=== PATIENT | male | born 1950 | race Caucasian/White ===

== ENCOUNTER → 2019-05-28 08:53 | Outpatient (BNVA) | payer MEDICARE, OTHER, SELFPAY | PROVIDERS: Family Provider Nurse Practitioner Family; PCP Nurse Practitioner Family; Visit Provider Nurse Practitioner Family | DX: I10 Essential (primary) hypertension (principal); E11.9 Type 2 diabetes mellitus without complications; Z79.84 Long term (current) use of oral hypoglycemic drugs; E55.9 Vitamin D deficiency, unspecified; E78.5 Hyperlipidemia, unspecified | CPT/HCPCS: 80053; 80061; 82306; 83036; 85025 ==

== ENCOUNTER 2019-12-05 08:00 | Outpatient (CLI) | payer MEDICARE, OTHER, SELFPAY ==
[2019-12-05 09:06] LABS: Add Urine Microscopic? NO
[2019-12-05 09:13] LABS: Hematocrit 37.3 % (42.0-52.0); Mean Corpuscular HGB Conc 32.2 g/dL (30.0-36.0); Mean Corpuscular Volume 87.1 fL (80-94); Mean Platelet Volume 10.7 fL (7.4-10.4); Platelet Count 286 10^3/cmm (130-400); Red Blood Count 4.28 10^6/uL (4.1-5.3); White Blood Count 7.1 10^3/uL (4.0-10.0)
[2019-12-05 09:25] LABS: Alanine Aminotransferase < 5 U/L (0-41); Albumin Level 4.3 g/dL (3.5-5.2); Alkaline Phosphatase 40 IU/L (40-130); Aspartate Amino Transferase 14 U/L (0-40); Blood Urea Nitrogen 15 mg/dL (8-23); Carbon Dioxide 29 mmol/L (22-29); Chloride 106 mmol/L (98-107); Globulin 2.8 g/dL (1.3-4.6); Glucose 112 mg/dL (65-115); Osmolality Calculated 293 mOsm/kg (285-295); Sodium 143 mmol/L (136-145); Total Bilirubin 0.4 mg/dL (0.15-1.2); Total Protein 7.1 g/dL (6.6-8.7)
[2019-12-05 09:45] LABS: Bilirubin Urine Neg (NEGATIVE); Blood Urine Neg (Negative); Glucose Urine UA 4+ (Normal); Ketones Urine Negative (Negative); Leukocyte Esterase Urine Negative (Negative); Nitrate Urine Negative (Negative); Protein Urine Neg (Negative); Specific Gravity, Urine 1.025 (1.005-1.030); Urine Appearance Clear (CLEAR); Urine Color Other (Yellow); Urobilinogen Urine Norm (Negative)
[2019-12-05 10:08] LABS: Absolute Eosinophils 0.2 10^3/cmm (0.0-0.7); Absolute Neutrophil 2.9 10^3/cmm (1.4-6.5); Absolute Segmented Neutrophil 2.5 10/cmm (1.6-7.1); Band Neutrophils Absolute 0.4 10^3/cmm (0.0-1.2); Eosinophils 3 %; Lymphocytes 52 %; Monocytes Absolute 0.3 10^3/cmm (0.1-0.6); Platelet Estimate Normal (Normal); Segmented Neutrophils 35 %; Total Cells Counted 100 (0-100)
== END 2019-12-05 08:01 | disposition home or self-care (01) ==
PROVIDERS: PCP Family Medicine; Visit Provider Internal Medicine
DX: N39.0 Urinary tract infection, site not specified (principal); F03.90 Unspecified dementia, unspecified severity, without behavioral disturbance, psychotic disturbance, mood disturbance, and anxiety
CPT/HCPCS: 80053; 81003; 85007; 85027

== ENCOUNTER 2019-12-05 18:52 | Inpatient (IN) | payer MEDICARE, OTHER, SELFPAY ==
[2019-12-05 18:45] VITALS: BP 177/98; PULSE 73; RESP 18; TEMP 36.8; O2SAT 98; BMI 27.1
--- NOTE | 2019-12-05 18:50 | ECG_ITS ---
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 Measurements Intervals [place] Rate: 74 P: 66 VT: 202 QRS: 28 QRSD: 106 T: 58 QT: 395 QTc: 440 Interpretive Statements SINUS RHYTHM WITH SINUS ARRHYTHMIA No previous ECG available for comparison Electronically Signed On 12-06-2019 21:04:34 CDT by Mat Lopez M.D. [id number]
--- NOTE | 2019-12-05 18:50 | XRR_ITS ---
PROCEDURE INFORMATION: Exam: XR Chest, 1 View Exam date and time: 12/05/2019 7:15 PM Age: 69 years old Clinical indication: Other: Altered mental status; Additional info: AMS TECHNIQUE: Imaging protocol: XR of the chest Views: 1 view. COMPARISON: No relevant prior studies available. FINDINGS: Lungs: Interstitial prominence, without acute airspace disease. Pleural space: No pleural effusion. Heart/Mediastinum: No cardiomegaly. Vasculature: Ectasia of the thoracic aorta. Bones/joints: Degenerative change. Soft tissues: Right-sided skin fold. XR/XR chest 1V portable [id number] IMPRESSION: Interstitial prominence, without acute airspace disease.
--- NOTE | 2019-12-05 18:56 | CTR_ITS ---
PROCEDURE INFORMATION: Exam: CT Head Without Contrast Exam date and time: 12/05/2019 7:39 PM Age: 69 years old Clinical indication: Altered mental status/memory loss; Patient HX: PT has dementia; Additional info: AMS TECHNIQUE: Imaging protocol: Computed tomography of the head without contrast. Radiation optimization: All CT scans at this facility use at least one of these dose optimization techniques: automated exposure control; mA and/or kV adjustment per patient size (includes targeted exams where dose is matched to clinical indication); or iterative reconstruction. COMPARISON: No relevant prior studies available. RADIATION DOSE METRICS: Total DLP (mGy-cm): 734.21 FINDINGS: Brain: Mild atrophy and mild white matter chronic microvascular changes are noted. No hemorrhage or CT evidence of acute infarction is seen. Ventricles: Normal. No ventriculomegaly. Bones/joints: Unremarkable. No acute fracture. Sinuses: Visualized sinuses are unremarkable. No fluid levels. Mastoid air cells: Visualized mastoid air cells are well aerated. Soft tissues: Unremarkable. CT/CT head wo con* [id number] IMPRESSION: No acute intracranial abnormality. Radiation Dose CTDIVOL = (mGy): DLP = 734.21 (mGy-cm)
[2019-12-05 19:18] LABS: Basophils # 0.1 10^3/uL (0.0-0.1); Basophils % 1.1 %; Eosinophils # 0.1 10^3/uL (0.0-0.8); Hematocrit 40.3 % (42.0-52.0); Hemoglobin 12.8 g/dL (11.7-16.6); Lymphocytes # 3.6 10^3/uL (0.8-4.8); Lymphocytes % 39.4 %; Mean Corpuscular HGB Conc 31.8 g/dL (30.0-36.0); Mean Corpuscular Hemoglobin 27.5 pg (28.0-34.0); Mean Corpuscular Volume 86.7 fL (80-94); Mean Platelet Volume 10.2 fL (7.4-10.4); Monocytes # 0.8 10^3/uL (0.2-0.9); Monocytes % 8.6 %; Neutrophils # 4.56 10^3/uL (1.8-7.7); Neutrophils % 49.7 %; Nucleated Red Blood Cells % 0 %; Platelet Count 326 10^3/cmm (130-400); Red Blood Count 4.65 10^6/uL (4.1-5.3); White Blood Count 9.2 10^3/uL (4.0-10.0)
[2019-12-05 19:36] LABS: INR 0.92 (0.8-1.2)
--- NOTE | 2019-12-05 19:36 | ED_ITS ---
HPI - General Adult General: Chief complaint: General Medical Stated complaint: Ca 12 Time Seen by Provider: 12/05/19 18:55 History of Present Illness: HPI narrative: This patient is a 69-year-old male sent over from [facility]. He was admitted there a few days ago and has developed altered mental status in the past day or 2. He had a negative COVID prior to his admission which was within the last week. The assisted thinks he may have had a low-grade temperature. He has been acting strangely and urinating in trash cans. His calcium was noted to be elevated above 12 today and he had 4+ glucose in his urine. He was sent to the ED for further evaluation of his altered mental status. At baseline he has dementia and that is the reason he is at the assisted living. Onset (ago): day(s) (1) Review of Systems General: Reports: ROS unobtainable due to mental status [facility] ED PFSH: Medical History (Updated 12/06/19 @ 06:05 by Alecia Ramirez MD) Essential (primary) hypertension History of closed head injury Hyperglycemia Memory loss, short term Mixed hyperlipidemia Vitamin D deficiency Surgical History History of colonoscopy 2011 negative History of mandibular surgery Family History Other Diabetes Denies family history of Bleeding disorder Social History Smoking and tobacco status: former smoker Second hand smoke exposure: No Smoking risk assessment/counseling performed?: No Alcohol intake: never Desire information about alcohol rehabilitation?: No Counseling given: No Desire information about substance/drug rehabilitation?: No Counseling given: No Adopted: No Caregiver/support person: No Lives independently: Yes Household members: none Housing: House Marital status: Number of children: 2 service: Yes branch: [employer] Current occupational status: retired History of recent travel: No Current gender identity: Male Physical Exam Const: COMMON NORMALS: no acute distress, patient oriented x3 and alert EXAM LIMITATIONS: other limitations (The patient actually would not talk to me at all. The medical lab assistant who was in ) GENERAL APPEARANCE: cooperative and comfortable HENMT: HEAD & SCALP: normal to inspection FACE & SINUS: normal facial exam Eye: GENERAL EYE: appearance normal, both eyes and all related structures Neck/C-Spine: COMMON NORMALS: supple, no meningeal signs and no JVD Chest: COMMONS NORMALS: normal inspection of the chest Resp: COMMON NORMALS: normal respiratory effort, No use of accessory muscles and clear to auscultation bilaterally AUSCULTATION: clear to auscultation bilaterally Cardio: COMMON NORMALS: no JVD, regular rate, regular rhythm and No murmurs p resent (Cardio) RATE: regular rate RHYTHM: regular rhythm GI: COMMON NORMALS: Normal to inspection, nondistended, normoactive bowel sounds present, Soft to palpation and non-tender INSPECTION: Yes normal to inspection AUSCULTATION: Yes normoactive bowel sounds PALPATION: Yes Soft to palpation Back/Pelvis: COMMON NORMALS: thoracic and lumbar spine normal to inspection Extremity: COMMON NORMALS: normal to inspection Neuro: COMMON NORMALS: patient oriented x3, moves all extremities, no focal motor deficits and no sensory deficits noted SENSORIUM/ORIENTATION: Yes alert MENINGEAL SIGNS: Yes no meningeal signs Psych: COMMON NORMALS: mental status grossly normal, cooperative and normal affect Skin: COMMON NORMALS: no rashes or lesions noted and turgor normal GENERAL SKIN EXAM: no rashes or lesions noted and turgor normal Course ED course: This patient was sent by Dr. Xie and I spoke with her about the patient's history and reasons for admission. She is concerned about progressive behavioral issues and that these could be related to his hypercalcemia. CT head was neg today - CXR pending. Dr. Persaud will admit for further management. The patient was given IV fluid in the ED as the initially treatment of the elevated calcium. Vital Signs: Vital signs: Vital Signs Temperature 98.3 F 12/06/19 03:26 Pulse Rate 78 12/06/19 03:26 Respiratory Rate 16 12/06/19 03:26 Blood Pressure 165/84 12/06/19 03:26 Pulse Oximetry 97 12/06/19 03:26 MDM - General Adult Lab Data: Labs: Lab Results 12/05/19 12/05/19 12/05/19 Range/Units 19:00 19:00 19:00 WBC 9.2 (4.0-10.0) 10^3/ uL RBC 4.65 (4.1-5.3) 10^6/u L Hgb 12.8 (11.7-16.6) g/dL Hct 40.3 L (42.0-52.0) % MCV 86.7 (80-94) fL MCH 27.5 L (28.0-34.0) pg MCHC 31.8 (30.0-36.0) g/dL RDW 15.0 (12.1-15.1) % Plt Count 326 (130-400) 10^3/c mm MPV 10.2 (7.4-10.4) fL Neut % (Auto) 49.7 % Lymph % (Auto) 39.4 % [place] % (Auto) 8.6 % Eos % (Auto) 1.0 % Baso % (Auto) 1.1 % Neut # (Auto) 4.56 (1.8-7.7) 10^3/u L Lymph # (Auto) 3.6 (0.8-4.8) 10^3/u L [place] # (Auto) 0.8 (0.2-0.9) 10^3/u L Eos # (Auto) 0.1 (0.0-0.8) 10^3/u L Baso # (Auto) 0.1 (0.0-0.1) 10^3/u L Nucleated RBC % (a uto) 0 % Nucleated RBCs # 0.0 /100WBC PT 12.70 (12.1-14.9) SECO NDS INR 0.92 (0.8-1.2) Sodium 143 (136-145) mmol/L Potassium 3.1 L (3.5-5.1) mmol/L Chloride 105 (98-107) mmol/L Carbon Dioxide 28 (22-29) mmol/L Anion Gap 13.1 (5-19) BUN 18 (8-23) mg/dL Creatinine 1.5 H (0.7-1.2) mg/dL GFR Calculation Not Reportable Glucose 142 H (65-115) mg/dL Estimat Average Gl ucose Hemoglobin A1c (4.0-6.0) % Calculated Osmolal ity 295 (285-295) mOsm/k g Lactic Acid (0.5-2.2) mmol/L Calcium 12.3 H (8.5-10.5) mg/dL Magnesium 2.3 (1.7-2.3) mg/dL Total Bilirubin 0.3 (0.15-1.2) mg/dL AST 14 (0-40) U/L ALT 7 (0-41) U/L Alkaline Phosphata se 49 (40-130) IU/L Troponin T Baselin e (0-15) ng/L Troponin T [address] [place] (0-15) ng/L Delta Troponin T (0-10) ABS# Total Protein 7.4 (6.6-8.7) g/dL Albumin 4.6 (3.5-5.2) g/dL Globulin 2.8 (1.3-4.6) g/dL Lipase 38 (13-60) U/L Vitamin B12 (232-1245) pg/mL TSH 2.00 (0.27-4.20) uIU/ mL Free T4 1.04 (0.82-1.77) ng/d L PTH Intact (15-65) pg/mL Calcium (PTH Intac t) (8.5-10.5) mg/dL Random Cortisol (2.47-19.5) ug/m L Urine Color (Yellow) Urine Appearance (CLEAR) Urine pH (5-7) Ur Specific Gravit y (1.005-1.030) Urine Protein (Negative) Urine Glucose (UA) (Normal) Urine Ketones (Negative) Urine Blood (Negative) Urine Nitrate (Negative) Urine Bilirubin (NEGATIVE) Prot Sulfosalicyli c Acd (Negative) Urine Urobilinogen (Negative) mg/dL Ur Leukocyte Yumiko ase (Negative) Urine RBC (0-2) /hpf Urine WBC (0-5) /hpf Ur Squamous Epith Cells (0-5) Amorphous Sediment Urine Bacteria (NONE) 12/05/19 12/05/19 12/05/19 Range/Units 19:00 19:00 19:00 WBC (4.0-10.0) 10^3/ uL RBC (4.1-5.3) 10^6/u L Hgb (11.7-16.6) g/dL Hct (42.0-52.0) % MCV (80-94) fL MCH (28.0-34.0) pg MCHC (30.0-36.0) g/dL RDW (12.1-15.1) % Plt Count (130-400) 10^3/c mm MPV (7.4-10.4) fL Neut % (Auto) % Lymph % (Auto) % [place] % (Auto) % Eos % (Auto) % Baso % (Auto) % Neut # (Auto) (1.8-7.7) 10^3/u L Lymph # (Auto) (0.8-4.8) 10^3/u L [place] # (Auto) (0.2-0.9) 10^3/u L Eos # (Auto) (0.0-0.8) 10^3/u L Baso # (Auto) (0.0-0.1) 10^3/u L Nucleated RBC % (a uto) % Nucleated RBCs # /100WBC PT (12.1-14.9) SECO NDS INR (0.8-1.2) Sodium (136-145) mmol/L Potassium (3.5-5.1) mmol/L Chloride (98-107) mmol/L Carbon Dioxide (22-29) mmol/L Anion Gap (5-19) BUN (8-23) mg/dL Creatinine (0.7-1.2) mg/dL GFR Calculation Glucose (65-115) mg/dL Estimat Average Gl ucose 137 Hemoglobin A1c 6.4 H (4.0-6.0) % Calculated Osmolal ity (285-295) mOsm/k g Lactic Acid 1.2 (0.5-2.2) mmol/L Calcium (8.5-10.5) mg/dL Magnesium (1.7-2.3) mg/dL Total Bilirubin (0.15-1.2) mg/dL AST (0-40) U/L ALT (0-41) U/L Alkaline Phosphata se (40-130) IU/L Troponin T Baselin e 15 (0-15) ng/L Troponin T 120 [address] [place] (0-15) ng/L Delta Troponin T (0-10) ABS# Total Protein (6.6-8.7) g/dL Albumin (3.5-5.2) g/dL Globulin (1.3-4.6) g/dL Lipase (13-60) U/L Vitamin B12 (232-1245) pg/mL TSH (0.27-4.20) uIU/ mL Free T4 (0.82-1.77) ng/d L PTH Intact (15-65) pg/mL Calcium (PTH Intac t) (8.5-10.5) mg/dL Random Cortisol (2.47-19.5) ug/m L Urine Color (Yellow) Urine Appearance (CLEAR) Urine pH (5-7) Ur Specific Gravit y (1.005-1.030) Urine Protein (Negative) Urine Glucose (UA) (Normal) Urine Ketones (Negative) Urine Blood (Negative) Urine Nitrate (Negative) Urine Bilirubin (NEGATIVE) Prot Sulfosalicyli c Acd (Negative) Urine Urobilinogen (Negative) mg/dL Ur Leukocyte Yumiko ase (Negative) Urine RBC (0-2) /hpf Urine WBC (0-5) /hpf Ur Squamous Epith Cells (0-5) Amorphous Sediment Urine Bacteria (NONE) 12/05/19 12/05/19 12/05/19 Range/Units 21:03 21:10 21:10 WBC (4.0-10.0) 10^3/ uL RBC (4.1-5.3) 10^6/u L Hgb (11.7-16.6) g/dL Hct (42.0-52.0) % MCV (80-94) fL MCH (28.0-34.0) pg MCHC (30.0-36.0) g/dL RDW (12.1-15.1) % Plt Count (130-400) 10^3/c mm MPV (7.4-10.4) fL Neut % (Auto) % Lymph % (Auto) % [place] % (Auto) % Eos % (Auto) % Baso % (Auto) % Neut # (Auto) (1.8-7.7) 10^3/u L Lymph # (Auto) (0.8-4.8) 10^3/u L [place] # (Auto) (0.2-0.9) 10^3/u L Eos # (Auto) (0.0-0.8) 10^3/u L Baso # (Auto) (0.0-0.1) 10^3/u L Nucleated RBC % (a uto) % Nucleated RBCs # /100WBC PT (12.1-14.9) SECO NDS INR (0.8-1.2) Sodium (136-145) mmol/L Potassium (3.5-5.1) mmol/L Chloride (98-107) mmol/L Carbon Dioxide (22-29) mmol/L Anion Gap (5-19) BUN (8-23) mg/dL Creatinine (0.7-1.2) mg/dL GFR Calculation Glucose (65-115) mg/dL Estimat Average Gl ucose Hemoglobin A1c (4.0-6.0) % Calculated Osmolal ity (285-295) mOsm/k g Lactic Acid (0.5-2.2) mmol/L Calcium (8.5-10.5) mg/dL Magnesium (1.7-2.3) mg/dL Total Bilirubin (0.15-1.2) mg/dL AST (0-40) U/L ALT (0-41) U/L Alkaline Phosphata se (40-130) IU/L Troponin T Baselin e (0-15) ng/L Troponin T [address] [place] 17.28 H (0-15) ng/L Delta Troponin T 2.28 (0-10) ABS# Total Protein (6.6-8.7) g/dL Albumin (3.5-5.2) g/dL Globulin (1.3-4.6) g/dL Lipase (13-60) U/L Vitamin B12 (232-1245) pg/mL TSH (0.27-4.20) uIU/ mL Free T4 (0.82-1.77) ng/d L PTH Intact 57.5 (15-65) pg/mL Calcium (PTH Intac t) 12.3 H (8.5-10.5) mg/dL Random Cortisol (2.47-19.5) ug/m L Urine Color Yellow (Yellow) Urine Appearance Clear (CLEAR) Urine pH 8 H (5-7) Ur Specific Gravit y 1.020 (1.005-1.030) Urine Protein Neg (Negative) Urine Glucose (UA) Norm (Normal) Urine Ketones Negative (Negative) Urine Blood Neg (Negative) Urine Nitrate Negative (Negative) Urine Bilirubin Neg (NEGATIVE) Prot Sulfosalicyli c Acd Negative (Negative) Urine Urobilinogen Norm (Negative) mg/dL Ur Leukocyte Yumiko ase Negative (Negative) Urine RBC Rare (0-2) /hpf Urine WBC Rare (0-5) /hpf Ur Squamous Epith Cells 0-4 H (0-5) Amorphous Sediment Not Reportable Urine Bacteria 1+ H (NONE) 12/05/19 12/05/19 Range/Units 21:10 21:10 WBC (4.0-10.0) 10^3/ uL RBC (4.1-5.3) 10^6/u L Hgb (11.7-16.6) g/dL Hct (42.0-52.0) % MCV (80-94) fL MCH (28.0-34.0) pg MCHC (30.0-36.0) g/dL RDW (12.1-15.1) % Plt Count (130-400) 10^3/c mm MPV (7.4-10.4) fL Neut % (Auto) % Lymph % (Auto) % [place] % (Auto) % Eos % (Auto) % Baso % (Auto) % Neut # (Auto) (1.8-7.7) 10^3/u L Lymph # (Auto) (0.8-4.8) 10^3/u L [place] # (Auto) (0.2-0.9) 10^3/u L Eos # (Auto) (0.0-0.8) 10^3/u L Baso # (Auto) (0.0-0.1) 10^3/u L Nucleated RBC % (a uto) % Nucleated RBCs # /100WBC PT (12.1-14.9) SECO NDS INR (0.8-1.2) Sodium (136-145) mmol/L Potassium (3.5-5.1) mmol/L Chloride (98-107) mmol/L Carbon Dioxide (22-29) mmol/L Anion Gap (5-19) BUN (8-23) mg/dL Creatinine (0.7-1.2) mg/dL GFR Calculation Glucose (65-115) mg/dL Estimat Average Gl ucose Hemoglobin A1c (4.0-6.0) % Calculated Osmolal ity (285-295) mOsm/k g Lactic Acid (0.5-2.2) mmol/L Calcium (8.5-10.5) mg/dL Magnesium (1.7-2.3) mg/dL Total Bilirubin (0.15-1.2) mg/dL AST (0-40) U/L ALT (0-41) U/L Alkaline Phosphata se (40-130) IU/L Troponin T Baselin e (0-15) ng/L Troponin T [address] [place] (0-15) ng/L Delta Troponin T (0-10) ABS# Total Protein (6.6-8.7) g/dL Albumin (3.5-5.2) g/dL Globulin (1.3-4.6) g/dL Lipase (13-60) U/L Vitamin B12 341 (232-1245) pg/mL TSH (0.27-4.20) uIU/ mL Free T4 (0.82-1.77) ng/d L PTH Intact (15-65) pg/mL Calcium (PTH Intac t) (8.5-10.5) mg/dL Random Cortisol 4.05 (2.47-19.5) ug/m L Urine Color (Yellow) Urine Appearance (CLEAR) Urine pH (5-7) Ur Specific Gravit y (1.005-1.030) Urine Protein (Negative) Urine Glucose (UA) (Normal) Urine Ketones (Negative) Urine Blood (Negative) Urine Nitrate (Negative) Urine Bilirubin (NEGATIVE) Prot Sulfosalicyli c Acd (Negative) Urine Urobilinogen (Negative) mg/dL Ur Leukocyte Yumiko ase (Negative) Urine RBC (0-2) /hpf Urine WBC (0-5) /hpf Ur Squamous Epith Cells (0-5) Amorphous Sediment Urine Bacteria (NONE) Discharge Plan Discharge Patient Disposition: Placed in Observation Admit Provider: Silas Persaud Clinical Impression: Hypercalcemia Dementia Qualifiers: Dementia type: unspecified type Dementia behavioral disturbance: with behavioral disturbance Qualified Code(s): F03.91 - Unspecified dementia with behavioral disturbance Condition: Stable Discharge Date/Time: 12/05/19 22:49 Coding Level of Care Code ED Slp for [facility] Fwd Exam Comprehensive
[2019-12-05 19:41] LABS: Lactic Sepsis W/Reflex 1.2 mmol/L (0.5-2.2)
[2019-12-05 19:55] LABS: Alanine Aminotransferase 7 U/L (0-41); Albumin Level 4.6 g/dL (3.5-5.2); Alkaline Phosphatase 49 IU/L (40-130); Aspartate Amino Transferase 14 U/L (0-40); Blood Urea Nitrogen 18 mg/dL (8-23); Calcium 12.3 mg/dL (8.5-10.5); Carbon Dioxide 28 mmol/L (22-29); Chloride 105 mmol/L (98-107); Free T4 Free Thyroxine 1.04 ng/dL (0.82-1.77); Globulin 2.8 g/dL (1.3-4.6); Glucose 142 mg/dL (65-115); Lipase 38 U/L (13-60); Magnesium 2.3 mg/dL (1.7-2.3); Osmolality Calculated 295 mOsm/kg (285-295); Sodium 143 mmol/L (136-145); Total Bilirubin 0.3 mg/dL (0.15-1.2); Total Protein 7.4 g/dL (6.6-8.7)
[2019-12-05 19:59] LABS: Anion Gap 13.1 (5-19); Potassium 3.1 mmol/L (3.5-5.1)
[2019-12-05 20:08] VITALS: BP 172/91; PULSE 67; RESP 11; O2SAT 99
[2019-12-05 20:11] LABS: Troponin(5th) Baseline 15 ng/L (0-15)
[2019-12-05] MEDS: sodium chloride 0.9% 1,000 ML 999 ML IV (20:22)
--- NOTE | 2019-12-05 20:50 | ECG_ITS ---
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 Measurements Intervals [place] Rate: 73 P: 75 NV: 202 QRS: 39 QRSD: 105 T: 64 QT: 416 QTc: 461 Interpretive Statements SINUS RHYTHM Compared to ECG 12/05/2019 18:59:23 Sinus arrhythmia no longer present Electronically Signed On 12-06-2019 21:11:54 CDT by Mat Lopez M.D. [email or web address] medical [email or web address] [email or web address]/store/[id number]
[2019-12-05 21:33] VITALS: BP 191/97; PULSE 72; RESP 10; O2SAT 100
[2019-12-05 21:37] LABS: Troponin 5 2HR 17.28 ng/L (0-15); Troponin 5 2HR Delta 2.28 ABS# (0-10)
[2019-12-05] MEDS: potassium chloride premix 40 MEQ/100 ML PREMIX 25 MEQ IV (21:39)
[2019-12-05 21:40] LABS: Bacteria Urine 1+; Bilirubin Urine Neg (NEGATIVE); Blood Urine Neg (Negative); Glucose Urine UA Norm (Normal); Ketones Urine Negative (Negative); Leukocyte Esterase Urine Negative (Negative); Nitrate Urine Negative (Negative); Protein Urine Neg (Negative); RBC Urine RARE /hpf (0-2); Squamous Epithelial Cell Urine 0-4 (0-5); Sulfosalicylic Acid Urine Negative (Negative); Urine Appearance Clear (CLEAR); Urine Color Yellow (Yellow); Urobilinogen Urine Norm (Negative); WBC Urine RARE /hpf (0-5); pH Urine 8 (5-7)
--- NOTE | 2019-12-05 21:43 | P.HP_ITS ---
Providers/Chief Complaint Primary Care Provider: Karen Loredo MD Chief Complaint: Ca 12 History of Present Illness Madina Thompson is a 69 year old male who was sent in the emergency department for low-grade temperature, elevated calcium. He has had progressive dementia from my understanding. There are concerns about his behavior at his assisted living and he was found urinating either in the floor or in the trash can earlier today. I talked with a family member who reports he has had significant dementia symptoms for at least 1 year. This forgetfulness, progressed rather rapidly. In September of this year he fell and had a closed head injury causing cerebral edema. He was hospitalized at [place] and then was transferred to [place]. One seizure was associated with this and he took Keppra for a short while. Since that time he has had continued progressive memory loss and occasional odd behavior. He will have hallucinations, and occasional violent outbursts. At other times he will be very quiet and reserve d. Family reports that his father had severe dementia as well that was rather rapidly progressing. There is a concern, his calcium level which is elevated could be contributing to his mental status difficulties. Patient himself is unable to give any coherent history. Review of Systems General: Reports: ROS unobtainable due to mental status (Secondary to severe dementia) Medications/Allergies Home Medications Medication Instructions Recorded Confirmed Last Taken Type cholecalciferol (vitamin D3) 125 125 mcg PO DAILY #30 cap 11/11/19 12/05/19 12/05/19 Rx mcg (5,000 unit) capsule montelukast 10 mg tablet 10 mg PO DAILY #30 tab 11/11/19 12/05/19 12/05/19 Rx telmisartan 20 mg tablet 20 mg PO DAILY #30 tab 11/11/19 12/05/19 12/05/19 Rx donepezil 5 mg PO BEDTIME 12/05/19 12/05/19 12/04/19 History Allergies Allergy/AdvReac Type Severity Reaction Status Date / Time indomethacin [From Indocin] Allergy ALGY-Rash Verified 12/05/19 18:51 pravastatin [From Pravachol] AdvReac ADR-Muscle Verified 12/05/19 18:51 Pain PFSH Acute 2 PFSH: Medical History (Updated 12/05/19 @ 22:41 by Silas Persaud MD) Essential (primary) hypertension History of closed head injury Hyperglycemia Memory loss, short term Mixed hyperlipidemia Vitamin D deficiency Surgical History (Updated 12/05/19 @ 22:38 by Silas Persaud MD) History of colonoscopy 2011 negative History of mandibular surgery Family History Other Diabetes Denies family history of Bleeding disorder Social History Smoking and tobacco status: former smoker Second hand smoke exposure: No Smoking risk assessment/counseling performed?: No Alcohol intake: never Desire information about alcohol rehabilitation?: No Counseling given: No Desire information about substance/drug rehabilitation?: No Counseling given: No Adopted: No Caregiver/support person: No Lives independently: Yes Household members: none Housing: House Marital status: Number of children: 2 service: Yes branch: [employer] Current occupational status: retired History of recent travel: No Current gender identity: Male Vitals/I&O/Wt Last Vital Signs Temp 98.3 F 12/05/19 18:45 Pulse 72 12/05/19 21:33 Resp 10 L 12/05/19 21:33 BP 191/97 12/05/19 21:33 Pulse Ox 100 12/05/19 21:33 Weight last 48 hrs Weight 90.718 kg Physical Exam Narrative: EXAM NARRATIVE: General exam is a white male, who makes some faces and occasionally will, and will I am doing my exam. He is obviously confused. HEENT: Pupils equally round. Oropharynx clear. Neck there is supple no lymphadenopathy or thyromegaly Cardiovascular regular rate and rhythm without murmur, no S3 or S4 Lungs clear no wheezing or crackles Abdomen is soft positive bowel sounds. No obvious organomegaly was deferred Extremities no cyanosis clubbing, cap refill brisk. Right leg has trace edema Neuro no focal deficits, obviously confused. Slight jerkiness to his upper extremity maneuvers. Skin no rash Data : 12/05/19 19:00 12/05/19 19:00 Micro: Microbiology 12/05/19 19:00 Blood Culture - Preliminary Blood SPECIMEN COLLECTED 12/05/19 19:06 Blood Culture - Preliminary Blood SPECIMEN COLLECTED Other data: Calcium 12.3 Liver function tests within normal limits Troponin XV Albumin normal TSH normal Urinalysis negative CT head nothing acute Chest x-ray appears normal by my read Magnesium level normal A&P Assessment and plan (1) Hypercalcemia: This appears to have been going on since 2000 At this point I doubt it is affecting his mental status and I believe when he is hydrated he will likely only have mild hypercalcemia Thyroid testing has been checked. Vitamin D3 will be discontinued. Cortisol level, serum protein electrophoresis will be obtained Observation Status: Acute (2) Dementia: Check B12 I suspect he has Lewy body dementia with his history of hallucinations, slight tremulousness, rapid deterioration. Status: Acute (3) Hypokalemia: Supplementation given in the emergency department. Note that magnesium level was normal Status: Acute Additional A&P Information Right lower extremity edema. Check venous duplex Hyperglycemia. Check hemoglobin A1c. history of hypertension, continue home meds History of hyperlipidemia At this point full code although this will need to be revisited again considering his severe dementia Lovenox for DVT prophylaxis Discharge planning consulted as he may require different placement as I suspect he will have significant behavior issues based on his history. Attestations Medical Necessity Statement*: Will need less than 2 midnight stay for evaluation of hypercalcemia Time Spent in Patient Care: Greater than 35 minutes Coding Level of Care Code Acute Medical Illustrator for [facility] Fwd Diagnoses Hypercalcemia E83.52 Dementia F03.90 Hypokalemia E87.6
[2019-12-05 22:36] LABS: Ionized Calcium 1.3 mmol/L (1.1-1.4)
[2019-12-05 22:44] LABS: Calcium 12.3 mg/dL (8.5-10.5); Parathyroid Hormone 57.5 pg/mL (15-65)
[2019-12-05 22:45] LABS: Cortisol Random 4.05 ug/mL (2.47-19.5)
[2019-12-05 23:17] VITALS: BP 170/80; PULSE 67; RESP 16; TEMP 36.7; O2SAT 98
[2019-12-06] VITALS (8 sets, daily range): BP systolic 163–187; BP diastolic 83–98; PULSE 62–78; RESP 16–20; TEMP 36.6–37.4; O2SAT 95–99
[2019-12-06] MEDS: enoxaparin 40 mg/0.4 mL Syringe SUBCUT ×2 (00:01→20:21)
[2019-12-06] MEDS: sodium chloride 0.9% 1,000 ML 125 ML IV (00:01)
[2019-12-06 00:07] LABS: Estmated Average Glucose 137; Hemoglobin A1C 6.4 % (4.0-6.0)
[2019-12-06 00:29] LABS: Vitamin B12 341 pg/mL (232-1245)
--- NOTE | 2019-12-06 00:50 | ECG_ITS ---
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 Measurements Intervals [place] Rate: 75 P: 60 AR: 213 QRS: 24 QRSD: 98 T: 53 QT: 405 QTc: 455 Interpretive Statements SINUS RHYTHM WITH FIRST DEGREE AV BLOCK Compared to ECG 12/05/2019 20:45:00 First degree AV block now present Electronically Signed On 12-06-2019 21:13:16 CDT by Mat Lopez M.D. [id number]
[2019-12-06 01:09] LABS: Basophils # 0.1 10^3/uL (0.0-0.1); Eosinophils # 0.1 10^3/uL (0.0-0.8); Hematocrit 36.7 % (42.0-52.0); Hemoglobin 12.2 g/dL (11.7-16.6); Lymphocytes % 29.8 %; Mean Corpuscular HGB Conc 33.2 g/dL (30.0-36.0); Mean Corpuscular Hemoglobin 28.7 pg (28.0-34.0); Mean Corpuscular Volume 86.4 fL (80-94); Mean Platelet Volume 10.4 fL (7.4-10.4); Monocytes # 0.9 10^3/uL (0.2-0.9); Monocytes % 9.2 %; Neutrophils # 5.87 10^3/uL (1.8-7.7); Neutrophils % 58.6 %; Nucleated Red Blood Cells % 0 %; Platelet Count 275 10^3/cmm (130-400); Red Blood Count 4.25 10^6/uL (4.1-5.3); Red Cell Distribution Width 14.8 % (12.1-15.1)
[2019-12-06 01:52] LABS: Blood Urea Nitrogen 16 mg/dL (8-23); Carbon Dioxide 26 mmol/L (22-29); Chloride 111 mmol/L (98-107); Glucose 118 mg/dL (65-115); Osmolality Calculated 299 mOsm/kg (285-295); Sodium 146 mmol/L (136-145)
[2019-12-06 01:55] LABS: Troponin 5 6HR 18.75 ng/L (0-15); Troponin 5 6HR Delta 3.75 ng/L (0-12)
[2019-12-06 02:00] LABS: Anion Gap 11.7 (5-19)
[2019-12-06 02:01] LABS: Potassium 2.7 mmol/L (3.5-5.1)
[2019-12-06] MEDS: potassium chloride oral liq 20 mEq/15 mL UDC 40 MEQ PO (02:48)
[2019-12-06] MEDS: potassium chloride premix 40 MEQ/100 ML PREMIX 25 MEQ IV (02:48)
--- NOTE | 2019-12-06 07:00 | USCV_ITS ---
Madina Thompson Age: 69 Gender: M : 1950 Exam Date: 12/06/2019 07:03 Ordering Phys: Silas Persaud MD Technologist: Dinah Tong Exam Location: [facility] Indication: PAIN HISTORY: Lower extremity pain. PROCEDURES: Venous duplex imaging was performed in only the right lower extremity. The following venous structures were evaluated: common femoral vein, profunda vein, proximal portion of the greater saphenous vein, superficial femoral vein, and the popliteal vein. In addition, the posterior tibial and peroneal trunk were evaluated. FINDINGS: Normal 2-D Doppler and augmentation and compressibility throughout the lower extremity venous structures. Additional imaging through the proximal calf veins also reveals no thrombus. Limited evaluation of the greater saphenous vein is patent with no thrombus. CONCLUSIONS No DVT right lower extremity. Dr. Lucía Dixon DO (Electronically Signed) Final Date: 06 December 2019 09:12 S
[2019-12-06] MEDS: sodium chloride 0.9% 1,000 ML 75 ML IV (08:50)
[2019-12-06] MEDS: losartan 50 mg Tablet PO (08:50)
--- NOTE | 2019-12-06 09:03 | P.PN_ITS ---
Subjective Subjective: Interval history: ca improving to 11 today, patient remains confused, disoriented Medications: Reviewed: Yes Vitals/I&O/Wt Last Vital Signs Temp 98.5 F 12/06/19 07:57 Pulse 66 12/06/19 07:57 Resp 18 12/06/19 07:57 BP 168/95 12/06/19 08:50 Pulse Ox 96 12/06/19 07:57 12/05/19 12/06/19 12/06/19 22:59 06:59 14:59 Intake Total 329.167 / 329.167 463.75 / 463.75 Output Total 800 / 800 200 / 200 Balance -470.833 / -470.833 263.75 / 263.75 Weight last 48 hrs Weight 90.718 kg Physical Exam Narrative: EXAM NARRATIVE: GEN: Awake, disoriented, no acute distress CVS: S1S2 N RS: CTA B/L Abd: Soft, nt/nd , bs+ 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 REGISTRATION REPRESENTATIVE: no focal neuro deficits Data : 12/06/19 01:00 12/06/19 01:00 Micro: Microbiology 12/05/19 19:00 Blood Culture - Preliminary Blood SPECIMEN COLLECTED 12/05/19 19:06 Blood Culture - Preliminary Blood SPECIMEN COLLECTED A&P Assessment and plan (1) Hypercalcemia: This appears to have been going on since 2000 Per discussion with family, he has had waxing and waning mentation for a while now, not new , doubt related to acute hypercalcemia Status: Acute (2) Dementia: Check B12 at 341, within range I suspect he has Lewy body dementia with his history of hallucinations, slight tremulousness, rapid deterioration. Status: Acute Qualifiers: Dementia behavioral disturbance: with behavioral disturbance Dementia type: unspecified type Qualified Code(s): F03.91 - Unspecified dementia with behavioral disturbance (3) Hypokalemia: Supplementation given,, recheck with am labs Status: Acute Additional A&P Information Right lower extremity edema. Check venous duplex without DVT Hyperglycemia. Check hemoglobin A1c 6.4 c/w pre diabetes history of hypertension, continue home meds, add amlodipine 10 mg po qd History of hyperlipidemia At this point full code Lovenox for DVT prophylaxis Discharge planning consulted as he may require different placement as I suspect he will have significant behavior issues based on his history Attestations Medical Necessity Statement*: recheck labs incl calcium, K, disposition decisions Coding Level of Care Code Acute Enginehouse Brakeman for Chg Fwd Diagnoses Hypercalcemia E83.52 Dementia F03.91 Dementia behavioral disturbance: with behavioral disturbance Dementia type: unspecified type Hypokalemia E87.6
--- NOTE | 2019-12-06 11:14 | PC.CHAP ---
Pastoral Care Encounter/Spiritual Assessment Type of Contact [x] Declined ssis ssrs developer visit [] Patient/Family/Request visit [] Outpatient visit [] Follow-up visit [] Physician referral [] Code/Alert [x] Routine visit [] Staff referral [] Actively dying [] Patient sleeping [] Family support [] [] Out of room [] Palliative care [] [] Receiving care in room [] Pre-surgical visit [] Trauma [] Long length of stay [] ICU visit [] Other: Relational/Emotional Strength [] Patient feels connected with others/family/visitors/staff [] Distress [] Loneliness/isolation [] Abandonment Spirituality of Patient [] Person of Subha [] Attends Mandaen of their Subha [] Believes in Prayer [] Reads Bible or Sikh materials [] There are Spiritual issues to be addressed Physician Scribe Interventions [x] Prayer [] Active listening [] Non-anxious presence [] Spiritual/emotional support [] Crisis/trauma care [] Spiritual counseling [] Bereavement support [] Provided bereavement packet [] Provided Bible/devotional materials [] Provided toy/stuffed animal, coloring book to patient or family member [] Provided Communion [] Anointing/[place] [] Salvation [] Completed spiritual assessment [] Other: Impact on Illness or Injury [] Angry [] Fearful [] Anxious [] Often cries [] Exhaustion [] Unable to work [] Unable to attend anglican [] Unable to walk/stand [] Unable to read [] Unable to drive [] Unable to eat/drink [] Unable to sleep [] Unable to be with family [] Patient intubated [x] Other: Summary Patient declined visit but allowed prayer to be provided. Time spent with patient 5 minutes
--- NOTE | 2019-12-06 15:45 | PC.NURSE ---
i reported the high bp to the nurse. 187/98
[2019-12-06] MEDS: amlodipine 10 mg Tablet PO (16:29)
[2019-12-06] MEDS: donepezil 5 MG Tablet PO (20:18)
[2019-12-06] MEDS: haloperidol inj 5 mg/mL INJ 1 mL IM (20:21)
[2019-12-07] VITALS (10 sets, daily range): BP systolic 146–171; BP diastolic 78–96; PULSE 67–94; RESP 18; TEMP 36.6–37.1; O2SAT 92–98
[2019-12-07 05:01] LABS: Basophils # 0.1 10^3/uL (0.0-0.1); Basophils % 1.1 %; Eosinophils # 0.1 10^3/uL (0.0-0.8); Hematocrit 36.5 % (42.0-52.0); Hemoglobin 11.7 g/dL (11.7-16.6); Lymphocytes # 4.1 10^3/uL (0.8-4.8); Lymphocytes % 50.4 %; Mean Corpuscular HGB Conc 32.1 g/dL (30.0-36.0); Mean Corpuscular Hemoglobin 27.7 pg (28.0-34.0); Mean Corpuscular Volume 86.5 fL (80-94); Mean Platelet Volume 9.9 fL (7.4-10.4); Monocytes # 0.7 10^3/uL (0.2-0.9); Monocytes % 8.4 %; Neutrophils # 3.14 10^3/uL (1.8-7.7); Nucleated Red Blood Cells % 0 %; Platelet Count 259 10^3/cmm (130-400); Red Blood Count 4.22 10^6/uL (4.1-5.3); White Blood Count 8.1 10^3/uL (4.0-10.0)
[2019-12-07 05:32] LABS: Alanine Aminotransferase < 5 U/L (0-41); Alkaline Phosphatase 41 IU/L (40-130); Anion Gap 10.9 (5-19); Aspartate Amino Transferase 13 U/L (0-40); Blood Urea Nitrogen 12 mg/dL (8-23); Carbon Dioxide 26 mmol/L (22-29); Chloride 110 mmol/L (98-107); Globulin 2.7 g/dL (1.3-4.6); Glucose 99 mg/dL (65-115); Osmolality Calculated 294 mOsm/kg (285-295); Sodium 144 mmol/L (136-145); Total Bilirubin 0.5 mg/dL (0.15-1.2); Total Protein 6.7 g/dL (6.6-8.7)
[2019-12-07 05:44] LABS: Potassium 2.9 mmol/L (3.5-5.1); Rapid Plasma Reagin Syphilis Nonreactive (Nonreactive)
[2019-12-07] MEDS: potassium chloride premix 40 MEQ/100 ML PREMIX 25 MEQ IV (06:27)
[2019-12-07] MEDS: sodium chloride 0.9% 1,000 ML 75 ML IV (06:44)
[2019-12-07] MEDS: losartan 50 mg Tablet PO (08:50)
[2019-12-07] MEDS: amlodipine 10 mg Tablet PO (08:50)
[2019-12-07 09:10] LABS: PROTEIN, TOTAL 7.1 g/dL (6.1-8.1)
[2019-12-07 15:50] LABS: ALBUMIN 4.1 g/dL (3.8-4.8); ALPHA 1 GLOBULIN 0.3 g/dL (0.2-0.3); ALPHA 2 GLOBULIN 0.8 g/dL (0.5-0.9); BETA 1 GLOBULIN 0.5 g/dL (0.4-0.6); BETA 2 GLOBULIN 0.4 g/dL (0.2-0.5); GAMMA GLOBULIN 1.1 g/dL (0.8-1.7)
--- NOTE | 2019-12-07 16:50 | PM.PN ---
Subjective Subjective: Interval history: No acute overnight events. Had a discussion with the son today who confirms that patient's current mental status is his baseline. Blood culture today reported positive for gram-positive cocci 1 out of 4 bottles, likely to be a contaminant, however will update await speciation. Start IV vancomycin in the interim. Medications: Reviewed: Yes Vitals/I&O/Wt Last Vital Signs Temp 98.4 F 12/07/19 16:00 Pulse 82 12/07/19 16:00 Resp 18 12/07/19 16:00 BP 166/96 12/07/19 16:00 Pulse Ox 92 12/07/19 16:00 12/07/19 12/07/19 12/07/19 06:59 14:59 22:59 Intake Total 1420 / 1420 Output Total 360 / 1710 900 / 900 Balance -360 / 833.75 520 / 520 Weight last 48 hrs Weight 90.718 kg Physical Exam Narrative: EXAM NARRATIVE: GEN: Awake, disoriented, no acute distress , is able to answer some simple questions such as are you in pain, are you hungry, what is your name however unable to have a conversation. CVS: S1S2 N RS: CTA B/L Abd: Soft, nt/nd , bs+ PLANT DIRECTOR: no focal motor neuro deficits Data : 12/07/19 04:48 12/07/19 04:48 Micro: Microbiology 12/07/19 14:26 Blood Culture - Preliminary Blood SPECIMEN COLLECTED 12/07/19 14:22 Blood Culture - Preliminary Blood SPECIMEN COLLECTED 12/05/19 21:03 Urine Culture - Preliminary Urine,Clean Catch 12/05/19 19:06 Blood Culture - Preliminary Blood Gram positive cocci 12/05/19 19:00 Blood Culture - Preliminary Blood NEGATIVE TO DATE A&P Assessment and plan (1) Hypercalcemia: This appears to have been going on since 2000 Patient is currently getting hydration for the same. Appears to be at baseline currently. Work-up thus far has included normal PTH levels. SPEP has been sent and remains pending. Status: Acute (2) Dementia: Check B12 at 341, within range I suspect he has Lewy body dementia with his history of hallucinations, slight tremulousness, rapid deterioration. Had an extensive discussion with patient's son Fracisco today, who confirms that patient's current mental status is his baseline. He has had a more subacute decline over the past 6 weeks or so which is why he has been placed at the memory unit at [facility]. Medically he is ready to leave, however today blood cultures were reported as positive for gram-positive cocci in clusters which would need to be followed up to ensure that this is not a true infection. Status: Acute Qualifiers: Dementia behavioral disturbance: with behavioral disturbance Dementia type: unspecified type Qualified Code(s): F03.91 - Unspecified dementia with behavioral disturbance (3) Hypokalemia: Supplementation given,, recheck with am labs Status: Acute (4) Gram-positive cocci bacteremia: Appears to be a contaminant. Reported as gram-positive cocci in clusters growing in 1 out of 4 bottles. Will await coagulase testing. It turns out to be coagulase-negative Staphylococcus, more likely to be a contaminant. Status: Acute Additional A&P Information Right lower extremity edema. venous duplex without DVT Hyperglycemia. hemoglobin A1c 6.4 c/w pre diabetes history of hypertension, continue home meds, add amlodipine 10 mg po qd History of hyperlipidemia Full code , confirmed with son Herminia for DVT prophylaxis Dispo: discharge back to memory unti at [facility], pending repeat blood cx Attestations Medical Necessity Statement*: Awaiting identification of gram-positive cocci to determine if contaminant versus true infection. 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
[2019-12-07] MEDS: donepezil 5 MG Tablet PO (21:53)
[2019-12-07] MEDS: enoxaparin 40 mg/0.4 mL Syringe SUBCUT (21:53)
[2019-12-08 04:00] VITALS: BP 151/86; PULSE 80; RESP 16; TEMP 37.1; O2SAT 97
[2019-12-08 07:49] VITALS: BP 151/86
[2019-12-08] MEDS: amlodipine 10 mg Tablet PO (07:49)
[2019-12-08] MEDS: losartan 50 mg Tablet PO (07:49)
[2019-12-08 08:00] VITALS: BP 130/72; PULSE 65; RESP 18; TEMP 36.5; O2SAT 96
[2019-12-08 11:26] VITALS: BP 132/76; PULSE 65; RESP 18; TEMP 36.6; O2SAT 97
--- NOTE | 2019-12-08 12:07 | P.DS_ITS ---
Discharge Providers Date of Admission: 12/07/19 15:26 Date of Discharge: December 08, 2019 Attending Provider at Admission: Silas Persaud MD Attending Provider at Discharge: Deja Zelaya MD Primary Care Provider: Karen Loredo MD Diagnoses at Discharge Discharge Diagnosis (1) Hypercalcemia: Status: Acute (2) Dementia: Status: Acute Qualifiers: Dementia behavioral disturbance: with behavioral disturbance Dementia type: unspecified type Qualified Code(s): F03.91 - Unspecified dementia with behavioral disturbance (3) Hypokalemia: Status: Acute (4) Gram-positive cocci bacteremia: Status: Acute Reason for Visit Reason for Visit: Ca 12 Hospital Course Discharge Summary: Madina Thompson is a 69 year old male who was sent in the emergency department for low-grade temperature, elevated calcium from [facility] unit. There are concerns about his behavior at his assisted living and he was found urinating either in the floor or in the trash can earlier today. Per extensive discussion with the patient son Fracisco, he is currently at his baseline mental status. Patient does have progressive dementia for at least 1 year, particularly worsened over the last 2 to 3 months or so. In September of this year he had had a closed head injury with cerebral edema for which he was admitted for around 6 weeks at the hospital and since then has had a further decline in his mentation. At a baseline he is not conversant, however is able to answer yes or no to some basic simple questions. There was a concern at the half-way that his high calcium levels may be contributing to his mental status difficulties, however per review of prior calcium levels, this is not new and has been ongoing since at least 2000. Work work-up for the hypercalcemia during the course of admission included PTH levels which were within range, normal ionized calcium at 1.3. Serum electrophoresis was performed which did not show any M spike. Random cortisol was also normal at 4 .05. TSH was normal at 2. CT head did not show any acute intracranial abnormality. He did not have any fever during the course of admission. Of note his blood culture 1 out of 4 was reported as positive from admission for coagulase-negative staph. Repeat blood cultures are negative to date. This is likely to be a contaminant. He is being discharged back to [facility] in stable condition. LE duplex is negative. His blood pressure remained elevated in spite of taking ARBs, therefore amlodipine 10mg has been added to his regimen. Physical Exam Narrative: EXAM NARRATIVE: GEN: Awake, confused and disoriented, able to answer basic questions which is a little hungry etc. however is unable to have a full conversation. As confirmed with son Fracisco this is his baseline. 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 Discharge Data Data Completed and Pending: Completed Studies During Hospitalization Category Date Time Status CT head wo con* 7 0450 Stat Cat Scan 12/05/19 18:56 Completed XR chest 1V heidi ble 47591 Stat Exams 12/05/19 18:50 [place] [address] Routin e Ultrasound 12/06/19 07:00 Completed Pending at discharge Category Date Time Status Blood Culture Sta t Lab 12/05/19 19:00 Results Blood Culture Sta t Lab 12/07/19 14:26 Results Vancomycin Trough Routine Lab 12/09/19 01:00 Ordered Labs from last 24 hours 12/05/19 21:10 Albumin 4.1 Dwwmo-6-Xhiznljup 0.3 Mlmvq-7-Exnpvmfgq 0.8 Uabw-5-Ninsbvjw 0.5 Ggox-6-Yjnrwdut 0.4 Gamma Globulins 1.1 Abnorm Protein Ban d 1 Not Reportable U Abnormal Prot Ba nd 2 Not Reportable U Abnormal Prot Ba nd 3 Not Reportable Pro Electrophoresi s Int See note Vitals: Last Vital Signs Temp 97.8 F 12/08/19 11:26 Pulse 65 12/08/19 11:26 Resp 18 12/08/19 11:26 BP 132/76 12/08/19 11:26 Pulse Ox 97 12/08/19 11:26 Discharge Plan Discharge Patient Disposition: Home Condition: Stable Prescriptions: New amlodipine 10 mg Tablet 10 mg PO DAILY 30 Days Qty: 30 RF: 0 Continued cholecalciferol (vitamin D3) 125 mcg (5,000 unit) capsule 125 mcg PO DAILY Qty: 30 RF: 0 montelukast [Singulair] 10 mg tablet 10 mg PO DAILY Qty: 30 RF: 0 telmisartan 20 mg tablet 20 mg PO DAILY Qty: 30 RF: 0 donepezil 5 mg Tablet 5 mg PO BEDTIME RF: 0 Discharge Orders: Discharge Order (Routine); Ordered 12/08/19 Ordered By: Deja Zelaya Discharge Diet: Usual diet Discharge Activity: Resume usual activity Discharge Attestations Time Spent in Discharge Care*: less than 30 min Quality Metrics Clinical Quality Measures During this hospital stay, did patient experience: None Coding Level of Care Code Acute 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
[2019-12-08 12:52] VITALS: BP 132/76; PULSE 65; RESP 18; TEMP 36.6; O2SAT 97
--- NOTE | 2019-12-08 14:57 | PC.NURSE ---
Discharge - 1328 Report called to RIVAS Cedeno at [facility]. Patient escorted to private vehicle via wheelchair for d/c to [facility]. FLORIN, RETAIL EVENT COORDINATOR
== END 2019-12-08 14:57 | disposition home or self-care (01) | DRG 641 ==
LOC: ER 19:20 → MEDSURG 22:41
PROVIDERS: Emergency Medicine; Admitting Provider Internal Medicine; Emergency Provider Emergency Medicine; PCP Family Medicine; Visit Provider Student in an Organized Health Care Education/Training Program
DX: E83.52 Hypercalcemia (principal); F03.90 Unspecified dementia, unspecified severity, without behavioral disturbance, psychotic disturbance, mood disturbance, and anxiety; E87.6 Hypokalemia; B99.8 Other infectious disease; I10 Essential (primary) hypertension; E78.2 Mixed hyperlipidemia; Z87.891 Personal history of nicotine dependence; R73.9 Hyperglycemia, unspecified
CPT/HCPCS: 12345; 36415; 70450; 71045; 80048; 80053; 81001; 81003; 82310; 82330; 82533; 82607; 83036; 83605; 83690; 83735; 83970; 84155; 84165; 84439; 84443; 84484; 85007; 85025; 85027; 85610; 86592; 87040; 87086; 87205; 93005; 93971; 96372; 99283; 99285; G0378; J1630; J1650; J3370; J3480; J7030; J7050

== ENCOUNTER 2019-12-11 07:22 | Outpatient (CLI) | payer MEDICARE, OTHER, SELFPAY | END 2019-12-11 07:23 | disposition home or self-care (01) | LOC: LAB 07:25 | PROVIDERS: PCP Family Medicine; Visit Provider Family Medicine | DX: E83.52 Hypercalcemia (principal) | CPT/HCPCS: 36415; 80053; 85025 ==

== ENCOUNTER 2019-12-12 17:07 | Outpatient (CLI) | payer MEDICARE, OTHER, SELFPAY | END 2019-12-12 17:08 | disposition home or self-care (01) | PROVIDERS: PCP Family Medicine; Visit Provider Family Medicine | DX: E87.6 Hypokalemia (principal) | CPT/HCPCS: 36415; 84132 ==

== ENCOUNTER 2019-12-18 07:02 | Outpatient (CLI) | payer MEDICARE, OTHER, SELFPAY | END 2019-12-18 07:03 | disposition home or self-care (01) | LOC: LAB 08:05 | PROVIDERS: PCP Family Medicine; Visit Provider Family Medicine | DX: E87.6 Hypokalemia (principal) | CPT/HCPCS: 36415; 84132 ==

== ENCOUNTER 2020-01-29 08:05 | Outpatient (CLI) | payer MEDICARE, OTHER, SELFPAY ==
[2019-12-25 09:42] LABS: Potassium 3.3 mmol/L (3.5-5.1)
[2020-01-29 13:00] LABS: Add Urine Microscopic? NO
[2020-01-29 13:34] LABS: Bilirubin Urine Neg (Negative); Blood Urine Neg (Negative); Glucose Urine UA Norm (Normal); Ketones Urine Negative (Negative); Leukocyte Esterase Urine Negative (Negative); Nitrate Urine Negative (Negative); Protein Urine Neg (Negative); Specific Gravity, Urine 1.015 (1.005-1.030); Urine Appearance Clear (CLEAR); Urine Color Yellow (Yellow); Urobilinogen Urine Norm (Negative); pH Urine 6 (5-7)
== END 2020-01-29 08:06 | disposition home or self-care (01) ==
LOC: LAB 11:57
PROVIDERS: PCP Family Medicine; Visit Provider Family Medicine
DX: N39.0 Urinary tract infection, site not specified (principal); R50.9 Fever, unspecified
CPT/HCPCS: 36415; 80053; 81003; 84132; 85025

== ENCOUNTER 2020-04-03 09:08 | Emergency (ER) | payer MEDICARE, OTHER, SELFPAY ==
[2020-04-03 09:09] VITALS: BP 141/86; PULSE 79; RESP 16; O2SAT 100; BMI 27.2
--- NOTE | 2020-04-03 09:13 | XR_ITS ---
WS: [id number] Portable AP upright chest, 04/03/2020 Clinical Data: weakness Comparison: Portable chest, 12/05/2019. Findings: No nodules, masses or effusions are seen. The heart is normal. The pulmonary vascularity is not increased. No pneumonia or pneumothorax is seen. The aortic arch is mildly tortuous XR/XR chest 1V portable [id number] Impression: Atherosclerosis
--- NOTE | 2020-04-03 09:13 | CT_ITS ---
WS: [id number] CT HEAD TECHNIQUE: Noncontrast CT of the head obtained from the skullbase to the vertex. CLINICAL INFORMATION: weakness COMPARISON: January 05, 2020 DLP: 1226.[address] scans at [facility] use at least one of these dose optimization techniques: automat ed exposure control; mA and/or kV adjustment per patient size (includes targeted exams where dose is matched to clinical indication); or iterative reconstruction. FINDINGS: No evidence of intracranial hemorrhage or mass effect. Ventricular system and basal cisterns are jolly nt. Mild small vessel changes with moderate parenchymal volume loss. Chronic lacunar infarct right ca udate. Intracranial vascular calcification. No extra-axial fluid collections. No evidence of mass or mass effect. Normal jones-white differentiation. Mild mucosal thickening in the paranasal sinuses. Mastoid air cells are well aerated CT/CT head wo con* [id number] IMPRESSION: 1. No evidence of intracranial hemorrhage or mass effect. 2. Mild small vessel changes with moderate parenchymal volume loss. 3. Chronic lacunar infarct right caudate. 4. Mild mucosal thickening paranasal sinuses 5. No acute intracranial findings.
--- NOTE | 2020-04-03 09:13 | ECG_ITS ---
[facility] Test Date: 2020-04-03 Pat Name: Madina Thompson Department: Room: Gender: Male Belt Cleaner: : 1950 Requested By: Wilfrid Ybarra Order Number: [id number] [place] MD: Kenny Wheatley M.D. Measurements Intervals [place] Rate: 82 P: [place]: QRS: 60 QRSD: 93 T: 76 QT: 368 QTc: 432 Interpretive Statements Sinus rhythm with first-degree AV block SEPTAL MYOCARDIAL INFARCTION , OF INDETERMINATE AGE [40+ ms Q WAVE IN V1/V2] Compared to ECG 12/06/2019 01:21:21 Myocardial infarct finding now present Electronically Signed On 04-03-2020 17:20:08 EAR NOSE THROAT PHYSICIAN by Kenny Wheatley M.D. [id number]
--- NOTE | 2020-04-03 09:27 | ED_ITS ---
HPI - Altered Mental Status General: Chief Complaint: Altered Mental Status Stated Complaint: WEAKNESS/ AMS/ NUMBNESS Time Seen by Provider: 04/03/20 09:09 Source: patient and EMS Mode of arrival: EMS Limitations: no limitations History of Present Illness: HPI narrative: 69-year-old male who is here from assisted living has a history of dementia. Her assisted living he had weakness and was unable to ambulate this morning. He states that his legs just feel extremely heavy and so does his arms. He has no focal deficits. He states he just feels weakness. He denies any vomiting or diarrhea. He is able answer most my questions appropriate. He is disorientated to time which is baseline. Associated symptoms: Deny depression Review of Systems Const: Denies: fever(s), chills, body aches or change in appetite Eyes: Denies: blurry vision or eye discomfort ENMT: Denies: throat pain or dental pain Card: Denies: chest pain Resp: Denies: dyspnea GI: Denies: abdominal pain, nausea, vomiting or diarrhea : Denies: dysuria Musc: Reports: muscle weakness Skin/Breast: Denies: rash Neuro: Denies: headache(s) Psych: Denies: depression Aditya/Lymph: Denies: easy bruising All/Imm: Denies: urticaria PFSH ED PFSH: Medical History Essential (primary) hypertension History of closed head injury Hyperglycemia Lewy body dementia with behavioral disturbance Memory loss, short term Mixed hyperlipidemia Vitamin D deficiency Surgical History History of colonoscopy 2011 negative History of mandibular surgery Family History Other Diabetes Denies family history of Bleeding disorder Social History Smoking and tobacco status: former smoker Second hand smoke exposure: No Smoking risk assessment/counseling performed?: No Alcohol intake: never Desire information about alcohol rehabilitation?: No Counseling given: No Desire information about substance/drug rehabilitation?: No Counseling given: No Adopted: No Caregiver/support person: No Lives independently: Yes Household members: none Housing: House Marital status: Number of children: 2 service: Yes branch: [employer] Current occupational status: retired History of recent travel: No Current gender identity: Male Physical Exam Const: COMMON NORMALS: no acute distress, patient oriented x3 and healthy appearing HENMT: COMMON NORMALS: normocephalic and atraumatic HEAD & SCALP: normocephalic and atraumatic Eye: COMMON NORMALS: Equal, round and reactive pupils present and EOMs intact bilaterally PUPIL: Yes Equal, round and reactive pupils present Neck/C-Spine: COMMON NORMALS: full ROM and supple Chest: COMMONS NORMALS: normal inspection of the chest and normal palpation of entire chest wall Resp: COMMON NORMALS: normal respiratory effort, No retractions, No use of accessory muscles and clear to auscultation bilaterally AUSCULTATION: clear to auscultation bilaterally Cardio: COMMON NORMALS: regular rate, regular rhythm and No murmurs present (Cardio) RATE: regular rate RHYTHM: regular rhythm GI: COMMON NORMALS: Normal to inspection, nondistended, normoactive bowel sounds present, Soft to palpation, non-tender and no masses PALPATION: Yes Soft to palpation Extremity: COMMON NORMALS: normal to inspection and full ROM Neuro: COMMON NORMALS: patient oriented x3, moves all extremities and no focal motor deficits Psych: COMMON NORMALS: mental status grossly normal, Normal thought process present and cooperative THOUGHT PROCESS: Normal thought process present Skin: COMMON NORMALS: no rashes or lesions noted and no wounds GENERAL SKIN EXAM: no rashes or lesions noted Course Vital Signs: Vital signs: Vital Signs Pulse Rate 74 04/03/20 12:00 Respiratory Rate 16 04/03/20 12:00 Blood Pressure 133/82 04/03/20 12:00 Pulse Oximetry 95 04/03/20 12:00 MDM - Altered Mental Status MDM Narrative: Medical decision making narrative: Patient presents here with weakness that is since resolved. Likely due to patient's dementia. His head CT and blood work here are all normal. Patient is stable for discharge back to assisted living and is to return if worsening. Lab Data: Labs: Lab Results 04/03/20 04/03/20 04/03/20 Range/Units 09:35 09:35 09:35 WBC Cancelled Corrected WBC Cancelled RBC Cancelled Hgb Cancelled Hct Cancelled MCV Cancelled MCH Cancelled MCHC Cancelled RDW Cancelled Plt Count Cancelled MPV Cancelled Gran % Cancelled Neut % (Auto) Cancelled Lymph % (Auto) Cancelled Atkinson % (Auto) Cancelled Eos % (Auto) Cancelled Baso % (Auto) Cancelled Neut # (Auto) Cancelled Lymph # (Auto) Cancelled Atkinson # (Auto) Cancelled Eos # (Auto) Cancelled Baso # (Auto) Cancelled Absolute Gran (aut o) Cancelled Nucleated RBC % (a uto) Cancelled Nucleated RBCs # Cancelled Sodium 142 (136-145) mmol/L Potassium 4.1 (3.5-5.1) mmol/L Chloride 106 (98-107) mmol/L Carbon Dioxide 22 (22-29) mmol/L Anion Gap 18.1 (5-19) BUN 22 (8-23) mg/dL Creatinine 1.5 H (0.7-1.2) mg/dL GFR Calculation Not Reportable Glucose 98 (65-115) mg/dL Calculated Osmolal ity 297 H (285-295) mOsm/k g Calcium 11.9 H (8.5-10.5) mg/dL Magnesium 2.0 (1.7-2.3) mg/dL Total Bilirubin 0.5 (0.15-1.2) mg/dL AST 13 (0-40) U/L ALT 11 (0-41) U/L Alkaline Phosphata se 65 (40-130) IU/L Troponin T Baselin e 20 H (0-15) ng/L Troponin T 120 Min [place] (0-15) ng/L Delta Troponin T (0-10) ABS# Total Protein 7.1 (6.6-8.7) g/dL Albumin 4.4 (3.5-5.2) g/dL Globulin 2.7 (1.3-4.6) g/dL TSH 1.45 (0.27-4.20) uIU/ mL Urine Color (Yellow) Urine Appearance (CLEAR) Urine pH (5-7) Ur Specific Gravit y (1.005-1.030) Urine Protein (Negative) Urine Glucose (UA) (Normal) Urine Ketones (Negative) Urine Blood (Negative) Urine Nitrate (Negative) Urine Bilirubin (Negative) Urine Urobilinogen (Negative) mg/dL Ur Leukocyte Yumiko ase (Negative) 04/03/20 04/03/20 04/03/20 Range/Units 10:42 11:31 12:40 WBC 8.8 Corrected WBC RBC 4.62 Hgb 12.8 Hct 41.7 L MCV 90.3 MCH 27.7 L MCHC 30.7 RDW 15.0 Plt Count 184 MPV 10.7 H Gran % Neut % (Auto) 55.3 Lymph % (Auto) 33.8 Atkinson % (Auto) 8.9 Eos % (Auto) 0.9 Baso % (Auto) 0.9 Neut # (Auto) 4.84 Lymph # (Auto) 3.0 Atkinson # (Auto) 0.8 Eos # (Auto) 0.1 Baso # (Auto) 0.1 Absolute Gran (aut o) Nucleated RBC % (a uto) 0 Nucleated RBCs # 0.0 Sodium (136-145) mmol/L Potassium (3.5-5.1) mmol/L Chloride (98-107) mmol/L Carbon Dioxide (22-29) mmol/L Anion Gap (5-19) BUN (8-23) mg/dL Creatinine (0.7-1.2) mg/dL GFR Calculation Glucose (65-115) mg/dL Calculated Osmolal ity (285-295) mOsm/k g Calcium (8.5-10.5) mg/dL Magnesium (1.7-2.3) mg/dL Total Bilirubin (0.15-1.2) mg/dL AST (0-40) U/L ALT (0-41) U/L Alkaline Phosphata se (40-130) IU/L Troponin T Baselin e (0-15) ng/L Troponin T 120 Min [place] 19.61 H (0-15) ng/L Delta Troponin T -0.39 L (0-10) ABS# Total Protein (6.6-8.7) g/dL Albumin (3.5-5.2) g/dL Globulin (1.3-4.6) g/dL TSH (0.27-4.20) uIU/ mL Urine Color Yellow (Yellow) Urine Appearance Clear (CLEAR) Urine pH 7 (5-7) Ur Specific Gravit y 1.010 (1.005-1.030) Urine Protein Neg (Negative) Urine Glucose (UA) Norm (Normal) Urine Ketones Negative (Negative) Urine Blood Neg (Negative) Urine Nitrate Negative (Negative) Urine Bilirubin Neg (Negative) Urine Urobilinogen Norm (Negative) mg/dL Ur Leukocyte Yumiko ase Negative (Negative) Imaging Data^: CT Head: Attestation: I personally reviewed and interpreted this imaging study as follows: My impression: [address] [place] [address] CT Scan Report Signed Patient: Madina Thompson Unit #: [id number] : 1950 Age/Sex: 69 / M ADM Date: 04/03/20 Loc: ER Room/Bed: Attending Dr: Ordering Provider/Ordering MD: Wilfrid Ybarra MD Date of Service: 04/03/20 Procedure(s): CT head wo con* [id number] Accession Number(s): [id number] Report Number: [id number] WS: [id number] CT HEAD TECHNIQUE: Noncontrast CT of the head obtained from the skullbase to the vertex. CLINICAL INFORMATION: weakness COMPARISON: January 05, 2020 DLP: 1226.[address] scans at [facility] use at least one of these dose optimization techniques: automated exposure control; mA and/or kV adjustment per patient size (includes targeted exams where dose is matched to clinical indication); or iterative reconstruction. FINDINGS: No evidence of intracranial hemorrhage or mass effect. Ventricular system and basal cisterns are patent. Mild small vessel changes with moderate parenchymal volume loss. Chronic lacunar infarct right caudate. Intracranial vascular calcification. No extra-axial fluid collections. No evidence of mass or mass effect. Normal jones-white differentiation. Mild mucosal thickening in the paranasal sinuses. Mastoid air cells are well aerated CT/CT head wo con* [id number] IMPRESSION: 1. No evidence of intracranial hemorrhage or mass effect. 2. Mild small vessel changes with moderate parenchymal volume loss. 3. Chronic lacunar infarct right caudate. 4. Mild mucosal thickening paranasal sinuses 5. No acute intracranial findings. CXR: Attestation: I personally reviewed and interpreted this imaging study as follows: My impression: no acute abnormality EKG Data^: EKG 1: Attestation: I personally reviewed and interpreted this EKG as follows: EKG interpretation date: 04/03/20 EKG interpretation time: 09:15 Interpretation: afib hr [address] or t wave abnormalities qrs 93 qtc 407 EKG 2: Attestation: I personally reviewed and interpreted this EKG as follows: EKG interpretation date: 04/03/20 EKG interpretation time: 11:27 Interpretation: nsr hr [address] or t wave abnormalities qrs 105 qtc 400 Discharge Plan Discharge Patient Disposition: Home Clinical Impression: Altered mental status Qualifiers: Altered mental status type: unspecified Qualified Code(s): R41.82 - Altered mental status, unspecified Condition: Stable Prescriptions: No Action amlodipine 10 mg tablet 10 mg PO DAILY@08 RF: 0 melatonin 3 mg capsule 3 mg PO QPM@20 RF: 0 polyethylene glycol 3350 [Miralax] 17 gram/dose powder 17 gm PO DAILY@08 RF: 0 potassium chloride 20 mEq tablet extended release 20 meq PO DAILY@08 RF: 0 acetaminophen 325 mg Tablet 650 mg PO Q6H PRN (Reason: Pain) RF: 0 simethicone 125 mg Capsule 125 mg PO QID PRN (Reason: Gastric Reflux) RF: 0 ergocalciferol (vitamin D2) 1,250 mcg (50,000 unit) Capsule 1,250 mcg PO DAILY@08 RF: 0 Singulair 10 mg tablet 10 mg PO DAILY@08 RF: 0 telmisartan 20 mg tablet 20 mg PO DAILY@08 RF: 0 donepezil 5 mg Tablet 5 mg PO DAILY@20 RF: 0 Discharge Orders: Discharge ED (Routine); Ordered 04/03/20 Ordered By: Wilfrid Ybarra Referrals: Karen Loredo MD [Primary Care Provider] - 1-3 days Discharge Diet: Advance as tolerated Discharge Activity: Resume usual activity Patient Instructions: Altered Mental Status (ED) Coding Level of Care Code ED Pitching Coach for Chg Fwd Exam Comprehensive
[2020-04-03 10:01] VITALS: BP 123/78; PULSE 64; RESP 18; O2SAT 100
[2020-04-03 10:16] LABS: Troponin(5th) Baseline 20 ng/L (0-15)
[2020-04-03 10:25] LABS: Alanine Aminotransferase 11 U/L (0-41); Albumin Level 4.4 g/dL (3.5-5.2); Alkaline Phosphatase 65 IU/L (40-130); Anion Gap 18.1 (5-19); Aspartate Amino Transferase 13 U/L (0-40); Blood Urea Nitrogen 22 mg/dL (8-23); Calcium 11.9 mg/dL (8.5-10.5); Carbon Dioxide 22 mmol/L (22-29); Chloride 106 mmol/L (98-107); Globulin 2.7 g/dL (1.3-4.6); Glucose 98 mg/dL (65-115); Osmolality Calculated 297 mOsm/kg (285-295); Potassium 4.1 mmol/L (3.5-5.1); Sodium 142 mmol/L (136-145); Thyroid Stimulating Hormone 1.45 uIU/mL (0.27-4.20); Total Bilirubin 0.5 mg/dL (0.15-1.2); Total Protein 7.1 g/dL (6.6-8.7)
[2020-04-03 11:00] VITALS: BP 129/77; PULSE 72; RESP 16; O2SAT 99
--- NOTE | 2020-04-03 11:13 | ECG_ITS ---
[facility] Test Date: 2020-04-03 Pat Name: Madina Thompson Department: Room: Gender: Male Vp Biology: : 1950 Requested By: Wilfrid Ybarra Order Number: [id number] [place] MD: Kenny Wheatley M.D. Measurements Intervals [place] Rate: 71 P: 71 MI: 206 QRS: 61 QRSD: 105 T: 72 QT: 378 QTc: 412 Interpretive Statements SINUS RHYTHM WITH SINUS ARRHYTHMIA Septal myocardial infarction of indeterminate age Compared to ECG 04/03/2020 09:15:21 Myocardial infarct finding still present Electronically Signed On 04-03-2020 17:31:59 MAINTENANCE SHOP WELDER by Kenny Wheatley M.D. [id number]
[2020-04-03 11:19] LABS: Troponin 5 2HR 19.61 ng/L (0-15)
[2020-04-03 11:28] LABS: Troponin 5 2HR Delta -0.39 ABS# (0-10)
[2020-04-03 11:40] LABS: Add Urine Microscopic? NO
[2020-04-03 11:44] LABS: Bilirubin Urine Neg (Negative); Blood Urine Neg (Negative); Glucose Urine UA Norm (Normal); Ketones Urine Negative (Negative); Leukocyte Esterase Urine Negative (Negative); Nitrate Urine Negative (Negative); Protein Urine Neg (Negative); Urine Appearance Clear (CLEAR); Urine Color Yellow (Yellow); Urobilinogen Urine Norm (Negative); pH Urine 7 (5-7)
[2020-04-03 12:00] VITALS: BP 133/82; PULSE 74; RESP 16; O2SAT 95
[2020-04-03 12:54] LABS: Basophils # 0.1 10^3/uL (0.0-0.1); Basophils % 0.9 %; Eosinophils # 0.1 10^3/uL (0.0-0.8); Eosinophils % 0.9 %; Hematocrit 41.7 % (42.0-52.0); Hemoglobin 12.8 g/dL (11.7-16.6); Lymphocytes % 33.8 %; Mean Corpuscular HGB Conc 30.7 g/dL (30.0-36.0); Mean Corpuscular Hemoglobin 27.7 pg (28.0-34.0); Mean Corpuscular Volume 90.3 fL (80-94); Mean Platelet Volume 10.7 fL (7.4-10.4); Monocytes # 0.8 10^3/uL (0.2-0.9); Monocytes % 8.9 %; Neutrophils # 4.84 10^3/uL (1.8-7.7); Neutrophils % 55.3 %; Nucleated Red Blood Cells % 0 %; Platelet Count 184 10^3/cmm (130-400); Red Blood Count 4.62 10^6/uL (4.1-5.3); White Blood Count 8.8 10^3/uL (4.0-10.0)
--- NOTE | 2020-04-03 13:22 | PC.NURSE ---
Patient out of bed, removed IV self, redressed self, stated he was calling his immigration lawyer and we need to call his brother to come get him.
--- NOTE | 2020-04-03 13:44 | PC.NURSE ---
Attempted to call family member 2x via 2 different contact numbers to drive patient back to SNF without success. SNF stated they are unable to transport patient. [facility] was contacted stating the transport services would cost $8
--- NOTE | 2020-04-03 14:20 | PC.NURSE ---
Called family members 3x, reached Arias (brother) who was upset stating SNF stated [place] has a contract service for medical transport and we would supply transport services. Informed MrSydnee Thompson we can set up transport services however patient is responsible for bill upon arrival to SNF.
== END 2020-04-03 14:50 | disposition home or self-care (01) ==
PROVIDERS: Emergency Provider Emergency Medicine; PCP Family Medicine
DX: R41.82 Altered mental status, unspecified (principal); I10 Essential (primary) hypertension; G31.83 Neurocognitive disorder with Lewy bodies; F02.80 Dementia in other diseases classified elsewhere, unspecified severity, without behavioral disturbance, psychotic disturbance, mood disturbance, and anxiety; E78.2 Mixed hyperlipidemia; Z87.891 Personal history of nicotine dependence
CPT/HCPCS: 12345; 70450; 71045; 80053; 81003; 83735; 84443; 84484; 85025; 93005; 96360; 99282; 99283

== ENCOUNTER → 2020-08-19 14:54 | Outpatient (BNVA) | payer MEDICARE, OTHER, SELFPAY | PROVIDERS: PCP Family Medicine; Visit Provider Specialist | DX: G30.9 Alzheimer's disease, unspecified (principal); F02.80 Dementia in other diseases classified elsewhere, unspecified severity, without behavioral disturbance, psychotic disturbance, mood disturbance, and anxiety; Z87.891 Personal history of nicotine dependence | CPT/HCPCS: 99204 ==

== ENCOUNTER → 2020-08-26 14:37 | Outpatient (BNVA) | payer MEDICARE, OTHER, SELFPAY | PROVIDERS: PCP Family Medicine; Visit Provider Family Medicine | DX: I10 Essential (primary) hypertension (principal); F41.9 Anxiety disorder, unspecified; G30.9 Alzheimer's disease, unspecified; F02.80 Dementia in other diseases classified elsewhere, unspecified severity, without behavioral disturbance, psychotic disturbance, mood disturbance, and anxiety; N18.31 Chronic kidney disease, stage 3a | CPT/HCPCS: 80053; 85025 ==

== ENCOUNTER → 2020-08-28 12:54 | Outpatient (BNVA) | payer MEDICARE, OTHER, SELFPAY | PROVIDERS: PCP Family Medicine; Visit Provider Family Medicine | DX: E11.22 Type 2 diabetes mellitus with diabetic chronic kidney disease; F41.9 Anxiety disorder, unspecified; G30.9 Alzheimer's disease, unspecified; F02.80 Dementia in other diseases classified elsewhere, unspecified severity, without behavioral disturbance, psychotic disturbance, mood disturbance, and anxiety; N18.31 Chronic kidney disease, stage 3a; I12.9 Hypertensive chronic kidney disease with stage 1 through stage 4 chronic kidney disease, or unspecified chronic kidney disease; E11.65 Type 2 diabetes mellitus with hyperglycemia | CPT/HCPCS: 83036 ==

== ENCOUNTER 2020-11-11 14:58 | Outpatient (CLI) | payer MEDICARE, OTHER, SELFPAY ==
[2020-11-11 17:10] LABS: Add Urine Microscopic? NO; Charge for UA Resulting for Rev
[2020-11-11 17:28] LABS: Bilirubin Urine Neg (Negative); Blood Urine Neg (Negative); Glucose Urine UA Norm (Normal); Ketones Urine Negative (Negative); Leukocyte Esterase Urine Negative (Negative); Nitrate Urine Negative (Negative); Protein Urine Neg (Negative); Urine Appearance Clear (CLEAR); Urine Color Yellow (Yellow); Urobilinogen Urine Norm (Negative); pH Urine 5 (5-7)
== END 2020-11-11 14:59 | disposition home or self-care (01) ==
LOC: LAB 14:59
PROVIDERS: PCP Family Medicine; Visit Provider Family Medicine
DX: N39.0 Urinary tract infection, site not specified (principal)
CPT/HCPCS: 81003; 87086

== ENCOUNTER 2020-12-19 10:51 | Emergency (ER) | payer MEDICARE, OTHER, SELFPAY ==
[2020-12-19 11:03] VITALS: BP 126/76; PULSE 61; RESP 12; TEMP 36.9; O2SAT 96; BMI 28.7
--- NOTE | 2020-12-19 11:08 | CT_ITS ---
WS: [id number] CT HEAD TECHNIQUE: Noncontrast CT of the head obtained from the skullbase to the vertex. CLINICAL INFORMATION: AMS COMPARISON: CT April 03, 2020 DLP: 1001.[address] scans at [facility] use at least one of these dose optimization techniques: automat ed exposure control; mA and/or kV adjustment per patient size (includes targeted exams where dose is matched to clinical indication); or iterative reconstruction. FINDINGS: No evidence of intracranial hemorrhage or mass effect. Ventricular system and basal cisterns are jolly nt. Moderate small vessel changes with moderate parenchymal volume loss. Chronic lacunar infarct righ t caudate unchanged. No extra-axial fluid collections. No evidence of mass or mass effect. Paranasal sinuses and mastoid air cells are well aerated. .Normal visualized soft tissues. CT/CT head wo con* [id number] IMPRESSION: 1. No evidence of intracranial hemorrhage or mass effect. 2. Moderate small vessel changes. Moderate parenchymal volume loss. 3. Chronic lacunar infarct right caudate unchanged. 4. No acute intracranial findings.
--- NOTE | 2020-12-19 11:08 | XR_ITS ---
WS: [id number] Portable AP upright chest, 12/19/2020 Clinical Data: AMS Comparison: Portable chest, 04/03/2020. Findings: No nodules, masses or effusions are seen. The heart is normal. The pulmonary vascularity is not increased. No pneumonia or pneumothorax is seen. The aortic arch shows mild tortuosity. XR/XR chest 1V portable [id number] Impression: Atherosclerosis.
--- NOTE | 2020-12-19 11:10 | ECG_ITS ---
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 Measurements Intervals [place] Rate: 59 P: 60 OK: 194 QRS: 24 QRSD: 105 T: 56 QT: 400 QTc: 398 Interpretive Statements SINUS BRADYCARDIA Compared to ECG 04/03/2020 11:27:10 Sinus rhythm no longer present Sinus arrhythmia no longer present Myocardial infarct finding no longer present Electronically Signed On 12-19-2020 19:32:05 CDT by Mat Lopez M.D. [id number]
[2020-12-19 11:21] LABS: Basophils # 0.1 10^3/uL (0.0-0.1); Basophils % 1.4 %; Eosinophils # 0.1 10^3/uL (0.0-0.8); Hemoglobin 13.4 g/dL (11.7-16.6); Lymphocytes # 3.4 10^3/uL (0.8-4.8); Lymphocytes % 42.7 %; Mean Corpuscular HGB Conc 32.7 g/dL (30.0-36.0); Mean Corpuscular Hemoglobin 28.8 pg (28.0-34.0); Mean Platelet Volume 10.9 fL (7.4-10.4); Monocytes # 0.7 10^3/uL (0.2-0.9); Monocytes % 8.5 %; Neutrophils # 3.62 10^3/uL (1.8-7.7); Neutrophils % 46.1 %; Nucleated Red Blood Cells % 0 %; Platelet Count 281 10^3/cmm (130-400); Red Blood Count 4.66 10^6/uL (4.1-5.3); Red Cell Distribution Width 13.2 % (12.1-15.1); White Blood Count 7.9 10^3/uL (4.0-10.0)
[2020-12-19 11:35] LABS: Glucose Point of Care 113 mg/dL (70-110)
[2020-12-19 11:38] LABS: Alanine Aminotransferase 13 U/L (0-41); Albumin Level 4.1 g/dL (3.5-5.2); Alkaline Phosphatase 67 IU/L (40-130); Anion Gap 16.3 (5-19); Aspartate Amino Transferase 15 U/L (0-40); Blood Urea Nitrogen 19 mg/dL (8-23); Calcium 10.3 mg/dL (8.5-10.5); Carbon Dioxide 22 mmol/L (22-29); Chloride 108 mmol/L (98-107); Globulin 3.2 g/dL (1.3-4.6); Glucose 96 mg/dL (65-115); Osmolality Calculated 296 mOsm/kg (285-295); Potassium 4.3 mmol/L (3.5-5.1); Sodium 142 mmol/L (136-145); Total Bilirubin 0.5 mg/dL (0.15-1.2); Total Protein 7.3 g/dL (6.6-8.7)
[2020-12-19 11:39] LABS: Troponin(5th) Baseline 28 ng/L (0-15)
--- NOTE | 2020-12-19 11:42 | W.ED.AMS ---
HPI - Altered Mental Status General: Chief Complaint: Altered Mental Status Stated Complaint: AMS Time Seen by Provider: 12/19/20 11:07 History of Present Illness: HPI narrative: Patient is a 70-year-old male with a history of advanced dementia. Currently halfway patient. He is here with decreased mental status. Patient is unable/unwilling to give any history so history is ascertained from triage notes and halfway. Currently patient is independent walking and talking but this morning refused to answer any questions respond or cooperate in any way. EMS he did respond to noxious stimulus but went back to his previous state of nonresponsiveness. Vital signs have been normal. No history of recent trauma fall fevers. No chills cough nausea vomiting diarrhea chest pain or rash According to the patient's brother he has been unhappy with the patient's care at the halfway lately. The patient has on chart review showed some's secondary gain and lack of cooperation with staff Review of Systems General: Reports: ROS unobtainable due to mental status (Dementia) PFS ED PFSH: Medical History CKD (chronic kidney disease) stage 3, GFR 30-59 ml/min Essential (primary) hypertension History of closed head injury Hyperglycemia Lewy body dementia with behavioral disturbance Memory loss, short term Mixed hyperlipidemia Vitamin D deficiency Surgical History History of colonoscopy 2011 negative History of mandibular surgery Family History Other Diabetes Denies family history of Bleeding disorder Social History Smoking and tobacco status: former smoker Second hand smoke exposure: No Smoking risk assessment/counseling performed?: No Alcohol intake: never Desire information about alcohol rehabilitation?: No Counseling given: No Desire information about substance/drug rehabilitation?: No Counseling given: No Adopted: No Caregiver/support person: No Lives independently: Yes Household members: none Housing: House Marital status: Number of children: 2 service: Yes branch: [employer] Current occupational status: retired History of recent travel: No Current gender identity: Male Physical Exam Const: COMMON NORMALS: no acute distress, average body habitus and patient oriented x3 (Unable to establish); negative for alert EXAM LIMITATIONS: altered mental status and behavioral limitations GENERAL APPEARANCE: Limp noted; no odor of alcohol detected and patient not mechanically ventilated NUTRITIONAL APPEARANCE: not cachectic and not obese ORIENTATION/CONSCIOUSNESS: Yes Other orientation findings (Patient does not respond to verbal questions light or sound. He does grima) HENMT: COMMON NORMALS: normocephalic, atraumatic and moist oral mucous membranes HEAD & SCALP: normocephalic and atraumatic Eye: COMMON NORMALS: EOMs intact bilaterally, conjunctivae normal and no scleral icterus CONJUNCTIVA: Yes conjunctivae normal Neck/C-Spine: COMMON NORMALS: no meningeal signs Resp: COMMON NORMALS: normal respiratory effort and No retractions EFFORT & INSPECTION: Yes able to speak in complete sentences and Yes symmetric chest movement Cardio: COMMON NORMALS: regular rate, regular rhythm and Peripheral pulses 2+ throughout RATE: regular rate RHYTHM: regular rhythm PERIPHERAL PULSES: Peripheral pulses 2+ throughout GI: COMMON NORMALS: Normal to inspection, nondistended, normoactive bowel sounds present, Soft to palpation and non-tender INSPECTION: Yes normal to inspection PALPATION: Yes Soft to palpation Extremity: COMMON NORMALS: normal to inspection, no clubbing, cyanosis or edema, no calf tenderness and no pedal edema Neuro: LINDA COMA SCALE: document GCS findings (Patient not responding not cooperating with neurological exam) Weir coma scale eye opening: To pressure Weir coma scale verbal response: None Weir coma scale motor response: Localising Linda coma scale total score: 8 COMMON NORMALS: patient oriented x3 (Unable to establish) and deep tendon reflexes 2+ bilaterally SENSORIUM/ORIENTATION: No alert MENINGEAL SIGNS: Yes no meningeal signs Course ED course: Lab values are essentially unremarkable as is his vital signs. Will wait imaging and further work-up Chest x-ray and head CT are normal. Patient vital signs are normal has not had any changes in behavior. Waiting urinalysis Patient is now sitting up in bed comfortably. Reexamined after Covid test patient is oriented to name and place. Does not know why he is here but states he wants to go back to the halfway. Awaiting urinalysis Patient's urinalysis did not show any abnormalities. Laboratory imaging work-up was normal he seems to be back at his baseline. We will discharge at this time Vital Signs: Vital signs: Vital Signs Temperature 98.4 F 12/19/20 11:03 Pulse Rate 74 12/19/20 14:26 Respiratory Rate 15 12/19/20 14:26 Blood Pressure 130/78 12/19/20 14:26 Pulse Oximetry 99 12/19/20 14:26 MDM - Altered Mental Status MDM Narrative: Medical decision making narrative: Patient is unresponsive but I think this is more of a behavioral issue. Although he does have a GCS of 8 he is protecting his airway is responding to noxious stimulus does not appear to be any acute distress I do not think he needs to be intubated at this time. Review of chart and talking to his brother this may be for some secondary gain considering they are having issues with the halfway. However given this we will go ahead and work him up as an altered mental status CT head EKG labs VBG. I do find any reversible causes will treat those. The patient does not have a meningeal signs do not think we need to a lumbar puncture at this time however if he does have a significant leukocytosis and we do not find any other source of infection this may have to be considered. Differential diagnosis includes meningitis stroke Alzheimer's malingering Lab Data: Labs: Lab Results 12/19/20 12/19/20 12/19/20 Range/Units 10:40 10:40 10:40 WBC 7.9 (4.0-10.0) 10^3/ uL RBC 4.66 (4.1-5.3) 10^6/u L Hgb 13.4 (11.7-16.6) g/dL Hct 41.0 L (42.0-52.0) % MCV 88.0 (80-94) fl MCH 28.8 (28.0-34.0) pg MCHC 32.7 (30.0-36.0) g/dL RDW 13.2 (12.1-15.1) % Plt Count 281 (130-400) 10^3/c mm MPV 10.9 H (7.4-10.4) fL Neut % (Auto) 46.1 % Lymph % (Auto) 42.7 % [place] % (Auto) 8.5 % Eos % (Auto) 1.0 % Baso % (Auto) 1.4 % Neut # (Auto) 3.62 (1.8-7.7) 10^3/u L Lymph # (Auto) 3.4 (0.8-4.8) 10^3/u L [place] # (Auto) 0.7 (0.2-0.9) 10^3/u L Eos # (Auto) 0.1 (0.0-0.8) 10^3/u L Baso # (Auto) 0.1 (0.0-0.1) 10^3/u L Nucleated RBC % (a uto) 0 % Nucleated RBCs # 0.0 /100WBC Sodium 142 (136-145) mmol/L Potassium 4.3 (3.5-5.1) mmol/L Chloride 108 H (98-107) mmol/L Carbon Dioxide 22 (22-29) mmol/L Anion Gap 16.3 (5-19) BUN 19 (8-23) mg/dL Creatinine 1.2 (0.7-1.2) mg/dL GFR Calculation Not Reportable Glucose 96 (65-115) mg/dL POC Glucose (70-110) mg/dL Calculated Osmolal ity 296 H (285-295) mOsm/k g Calcium 10.3 (8.5-10.5) mg/dL Magnesium 2.0 (1.7-2.3) mg/dL Total Bilirubin 0.5 (0.15-1.2) mg/dL AST 15 (0-40) U/L ALT 13 (0-41) U/L Alkaline Phosphata se 67 (40-130) IU/L Troponin T Baselin e 28 H (0-15) ng/L Total Protein 7.3 (6.6-8.7) g/dL Albumin 4.1 (3.5-5.2) g/dL Globulin 3.2 (1.3-4.6) g/dL Urine Color (Yellow) Urine Appearance (CLEAR) Urine pH (5-7) Ur Specific Gravit y (1.005-1.030) Urine Protein (Negative) Urine Glucose (UA) (Normal) Urine Ketones (Negative) Urine Blood (Negative) Urine Nitrate (Negative) Urine Bilirubin (Negative) Urine Urobilinogen (Negative) mg/dL Ur Leukocyte Yumiko ase (Negative) Urine RBC Urine WBC (0-5) /hpf Ur Squamous Epith Cells Amorphous Sediment Urine Bacteria SARS-CoV-2 Ag (Rap id) (Negative) 12/19/20 12/19/20 12/19/20 Range/Units 11:30 12:43 13:40 WBC (4.0-10.0) 10^3/ uL RBC (4.1-5.3) 10^6/u L Hgb (11.7-16.6) g/dL Hct (42.0-52.0) % MCV (80-94) fl MCH (28.0-34.0) pg MCHC (30.0-36.0) g/dL RDW (12.1-15.1) % Plt Count (130-400) 10^3/c mm MPV (7.4-10.4) fL Neut % (Auto) % Lymph % (Auto) % [place] % (Auto) % Eos % (Auto) % Baso % (Auto) % Neut # (Auto) (1.8-7.7) 10^3/u L Lymph # (Auto) (0.8-4.8) 10^3/u L [place] # (Auto) (0.2-0.9) 10^3/u L Eos # (Auto) (0.0-0.8) 10^3/u L Baso # (Auto) (0.0-0.1) 10^3/u L Nucleated RBC % (a uto) % Nucleated RBCs # /100WBC Sodium (136-145) mmol/L Potassium (3.5-5.1) mmol/L Chloride (98-107) mmol/L Carbon Dioxide (22-29) mmol/L Anion Gap (5-19) BUN (8-23) mg/dL Creatinine (0.7-1.2) mg/dL GFR Calculation Glucose (65-115) mg/dL POC Glucose 113 H (70-110) mg/dL Calculated Osmolal ity (285-295) mOsm/k g Calcium (8.5-10.5) mg/dL Magnesium (1.7-2.3) mg/dL Total Bilirubin (0.15-1.2) mg/dL AST (0-40) U/L ALT (0-41) U/L Alkaline Phosphata se (40-130) IU/L Troponin T Baselin e (0-15) ng/L Total Protein (6.6-8.7) g/dL Albumin (3.5-5.2) g/dL Globulin (1.3-4.6) g/dL Urine Color Straw (Yellow) Urine Appearance Clear (CLEAR) Urine pH 7 (5-7) Ur Specific Gravit y 1.015 (1.005-1.030) Urine Protein Neg (Negative) Urine Glucose (UA) Norm (Normal) Urine Ketones Negative (Negative) Urine Blood Neg (Negative) Urine Nitrate Negative (Negative) Urine Bilirubin Neg (Negative) Urine Urobilinogen Norm (Negative) mg/dL Ur Leukocyte Yumiko ase Negative (Negative) Urine RBC Not Reportable Urine WBC 0-4 H (0-5) /hpf Ur Squamous Epith Cells Not Reportable Amorphous Sediment Not Reportable Urine Bacteria Not Reportable SARS-CoV-2 Ag (Rap id) Negative (Negative) Discharge Plan Discharge Patient Disposition: Home Clinical Impression: Alzheimer disease Condition: Stable Prescriptions: No Action lorazepam 1 mg tablet 1 mg PO DAILY PRN (Reason: anxiety/outbursts of anger) Qty: 14 RF: 0 amlodipine 10 mg tablet 10 mg PO DAILY@08 RF: 0 melatonin 3 mg capsule 3 mg PO QPM@20 RF: 0 polyethylene glycol 3350 [Miralax] 17 gram/dose powder 17 gm PO DAILY@08 RF: 0 potassium chloride 20 mEq tablet extended release 20 meq PO DAILY@08 RF: 0 acetaminophen 325 mg Tablet 650 mg PO Q6H PRN (Reason: Pain) RF: 0 simethicone 125 mg Capsule 125 mg PO QID PRN (Reason: Gastric Reflux) RF: 0 montelukast [Singulair] 10 mg tablet 10 mg PO DAILY@08 RF: 0 telmisartan 20 mg tablet 20 mg PO DAILY@08 RF: 0 donepezil [Aricept] 10 mg tablet 10 mg PO DAILY@0800 RF: 0 Vitamin D3 125 mcg (5,000 unit) Tablet 125 mcg PO DAILY RF: 0 Discharge Orders: Discharge ED (Routine); Ordered 12/19/20 Ordered By: Wilber Huerta Referrals: Amish Gurrola MD [Primary Care Provider] - Discharge Activity: Resume usual activity Patient Instructions: Alzheimer Disease (GEN), Opioid Safety Activity Restrictions/Additional Instructions: Follow-up with primary care in 3 to 5 days. Return to the emergency department with any new or worsening symptoms Coding Level of Care Code ED Patient Registration Supervisor for Chg Fwd Exam Comprehensive
--- NOTE | 2020-12-19 13:10 | ECG_ITS ---
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 Measurements Intervals [place] Rate: 71 P: 71 NV: 199 QRS: 26 QRSD: 98 T: 68 QT: 390 QTc: 425 Interpretive Statements SINUS RHYTHM Possible left atrial enlargement Compared to ECG 12/19/2020 11:54:31 Sinus bradycardia no longer present Electronically Signed On 12-19-2020 19:40:47 CDT by Mat Lopez M.D. [id number]
[2020-12-19 13:39] LABS: SARS Covid-2 Antigen Negative (Negative)
[2020-12-19 14:15] LABS: Glucose Urine UA Norm (Normal); Protein Urine Neg (Negative); Specific Gravity, Urine 1.015 (1.005-1.030); Urine Appearance Clear (CLEAR); Urine Color Straw (Yellow); pH Urine 7 (5-7)
[2020-12-19 14:16] LABS: Bilirubin Urine Neg (Negative); Blood Urine Neg (Negative); Ketones Urine Negative (Negative); Leukocyte Esterase Urine Negative (Negative); Nitrate Urine Negative (Negative); Urobilinogen Urine Norm (Negative)
[2020-12-19 14:19] LABS: WBC Urine 0-4 /hpf (0-5)
[2020-12-19 14:20] LABS: Add Urine Culture? No
[2020-12-19 14:26] VITALS: BP 130/78; PULSE 74; RESP 15; O2SAT 99
[2020-12-19 16:06] LABS: Troponin 5 2HR 25.93 ng/L (0-15)
[2020-12-19 16:10] LABS: Troponin 5 2HR Delta 2.07 ABS# (0-10)
[2020-12-19 16:54] VITALS: BP 141/81; PULSE 72; RESP 16; O2SAT 97
== END 2020-12-19 16:56 | disposition home or self-care (01) ==
PROVIDERS: Emergency Provider Family Medicine; PCP Family Medicine
DX: G30.9 Alzheimer's disease, unspecified (principal); F02.80 Dementia in other diseases classified elsewhere, unspecified severity, without behavioral disturbance, psychotic disturbance, mood disturbance, and anxiety; I12.9 Hypertensive chronic kidney disease with stage 1 through stage 4 chronic kidney disease, or unspecified chronic kidney disease; N18.30 Chronic kidney disease, stage 3 unspecified; E78.2 Mixed hyperlipidemia; Z87.891 Personal history of nicotine dependence; Z20.822 Contact with and (suspected) exposure to COVID-19
CPT/HCPCS: 36416; 70450; 71045; 80053; 81001; 82962; 83735; 84484; 85025; 87426; 93005; 99283

== ENCOUNTER → 2020-12-22 15:20 | Outpatient (BNVA) | payer MEDICARE, OTHER, SELFPAY | PROVIDERS: PCP Family Medicine; Visit Provider Specialist | DX: G30.9 Alzheimer's disease, unspecified (principal); F02.80 Dementia in other diseases classified elsewhere, unspecified severity, without behavioral disturbance, psychotic disturbance, mood disturbance, and anxiety | CPT/HCPCS: 99214 ==

== ENCOUNTER → 2021-06-29 12:03 | Outpatient (BNVA) | payer MEDICARE, OTHER, SELFPAY | PROVIDERS: PCP Emergency Medicine; Visit Provider Specialist | DX: G30.9 Alzheimer's disease, unspecified (principal); F02.80 Dementia in other diseases classified elsewhere, unspecified severity, without behavioral disturbance, psychotic disturbance, mood disturbance, and anxiety | CPT/HCPCS: 99213 ==